=== PATIENT | male | born 1955 | race Caucasian/White ===

== ENCOUNTER 2021-06-14 08:44 | Inpatient (IN) | payer BC ==
[2021-06-14] MEDS ORDERED: MORPHINE 4 MG/ML SYR ONE ×2 (09:30→11:41)
[2021-06-14] MEDS ORDERED: ONDANSETRON 4 MG/2 ML VIAL ONE ×2 (09:31→11:41)
[2021-06-14] MEDS ORDERED: NA CHLORIDE 0.9% 1,000 ML ONE ×2 (09:31→11:41)
[2021-06-14 09:34] LABS: Absolute Lymphocytes (CBC) 1.1 K/uL (0.7-4.9); Basophils % 0.7 % (0-1.3); Hematocrit 46.4 % (39.6-49.0); Lymphocytes % 14.8 % (15.3-44.8); RBC Red Blood Cell Count 5.63 M/uL (4.33-5.43)
--- NOTE | 2021-06-14 10:38 | RAD REPORT ---
EXAM DESCRIPTION: CT - Abdomen Pelvis W Contrast - 06/14/2021 10:10 am CLINICAL HISTORY: ABD PAIN, bloating for 3 days, prior appendectomy and cholecystectomy COMPARISON: CT ABD PELVIS W CONTRAST dated 06/09/2002 TECHNIQUE: Biphasic, helical CT imaging of the abdomen and pelvis was performed following 100 ml non -ionic IV contrast. No oral contrast administered. All CT scans are performed using dose optimization technique as appropriate and may include automated exposure control or mA/KV adjustment according to patient size. FINDINGS: No suspicious findings in the lung bases. Liver shows a very pronounced diffuse fatty infiltration pattern with no focal lesion. No portal vein abnormality. Spleen and pancreas are unremarkable. Cholecystectomy clips are present with no biliary tree dilatation. Symmetric renal function is seen with no hydronephrosis or suspicious renal mass. No pyelonephritis o r acute parenchymal process. A 15 millimeter exophytic lower pole right renal cyst is new or fraction ally enlarged from the rib far remote comparison. A new or slightly enlarged 15 millimeter cyst is pr esent in the lateral mid right kidney. A 3 centimeter left parapelvic cyst is new from 2001. A 12 mil limeter lower pole left renal cyst also new. Left adrenal gland is stable. A small 17 millimeter low- density right adrenal mass appears to be new from 2001. Incidental adrenal adenoma is most likely. Stomach is fluid-filled but not grossly dilated. No gastric wall thickening or mass. No gastric outle t obstruction seen. Peristalsis affect creates thickening in the distal body of the stomach. Duodenum is unremarkable. Proximal jejunum is also unremarkable. There is progressive dilatation in the mid s mall bowel up to 4.5 cm in diameter. There is circumferential wall thickening of these bowel loops. T ransition back to normal diameter is seen in the anterior mid abdomen at the umbilical level. Distal small bowel including terminal ileum are decompressed. Colon is mostly decompressed. Trace diverticul osis noted on the left. No free air or pneumatosis. There is a trace amount of free fluid in the peritoneal cavity. No mas s or bulky lymphadenopathy seen. Fat extends into the origins of the each inguinal canal. Disc and bone degenerative changes are present. No pathologic bone process. IMPRESSION: Multiple dilated small bowel loops with circumferential wall thickening. Bowel transitio ns back to a normal diameter in the periumbilical region. Early mechanical small bowel obstruction from adhesion or internal hernia suspected. Prominent small bowel enteritis is possible as well. No free air, abscess or surgically emergent finding. Additional nonacute findings detailed in the body of the report.
--- NOTE | 2021-06-14 10:48 | EDPHYS ---
Physician Documentation [facility] Name: Jordan Aj Age: 65 yrs Sex: Male : 1955 Arrival Date: 06/14/2021 Time: 08:49 Bed 7 Private MD: Colt Saunders ED Physician Jason Gomez HPI: 06/14 09:05 This 65 yrs old Male presents to ER via Wheelchair with complaints of pm1 Abdominal Pain. 09:05 The patient presents with abdominal pain in the upper abdomen. Onset: The pm1 symptoms/episode began/occurred 2 day(s) ago. The symptoms do not radiate. Associated signs and symptoms: Pertinent positives: nausea, vomiting, and diarrhea, Pertinent negatives: chest pain, shortness of breath. The symptoms are described as crampy. Modifying factors: The symptoms are alleviated by nothing, the symptoms are aggravated by nothing. Severity of pain: in the emergency department the pain is actually worse. The patient has not experienced similar symptoms in the past. The patient has not recently seen a physician. Patient reports exposure to someone at [employer] with stomach virus on Friday. Patient reports onset of watery diarrhea on Friday. Then onset of abdominal pain nausea/vomiting on Friday. Patient reports abdominal cramping and bloating. Historical: - Allergies: 10:07 Unkown BP medication; ch5 - Home Meds: 08:57 Nexium Oral [Active]; allopurinol Oral [Active]; Edarbi oral [Active]; hydralazine Oral ch5 [Active]; - PMHx: 09:44 Hypertensive disorder; GERD; ch5 - Immunization history:: Adult Immunizations up to date, Client reports receiving the 2nd dose of the Covid vaccine. - Social history:: Smoking status: Patient denies any tobacco usage or history of. ROS: 09:05 Constitutional: Negative for fever, chills, and weight loss, Cardiovascular: Negative pm1 for chest pain, palpitations, and edema, Respiratory: Negative for shortness of breath, cough, wheezing, and pleuritic chest pain. 09:05 Back: Negative for injury and pain, : Negative for injury, bleeding, discharge, and swelling, MS/Extremity: Negative for injury and deformity, Skin: Negative for injury, rash, and discoloration. 09:05 Abdomen/GI: Positive for abdominal pain, nausea, vomiting, and diarrhea, Negative for constipation. 09:05 All other systems are negative. Exam: 09:05 Constitutional: This is a well developed, well nourished patient who is awake, alert, pm1 and in no acute distress. Head/Face: Normocephalic, atraumatic. 09:05 Skin: Warm, dry with normal turgor. Normal color with no rashes, no lesions, and no evidence of cellulitis. MS/ Extremity: Pulses equal, no cyanosis. Neurovascular intact. Full, normal range of motion. 09:05 Eyes: Exam is negative for acute changes, Periorbital structures: appear normal, Conjunctiva: no acute changes, no injection. 09:05 ENT: Exam is negative for acute changes, Mouth: no acute changes, Lips: normal, moist, Oral mucosa: normal, pink and intact, moist. 09:05 Cardiovascular: Exam negative for acute changes, Rate: normal, Rhythm: regular, Pulses: no pulse deficits are appreciated. 09:05 Respiratory: Exam negative for acute changes, respiratory distress, shortness of breath, Breath sounds: are clear throughout. 09:05 Abdomen/GI: Inspection: abdomen appears normal, Palpation: soft, in all quadrants, mild abdominal tenderness, in the epigastric area. 09:05 Neuro: Exam negative for acute changes, Orientation: is normal, Mentation: is normal, Motor: is normal, moves all fours. Vital Signs: 08:55 Weight 108.86 kg; Height 6 ft. (182.88 cm); Pain 8/10; ch5 09:00 BP 208 / 99; Pulse 66; Resp 20; Temp 98; Pulse Ox 100% on R/A; jl7 10:16 BP 163 / 78; Pulse 55; Resp 15; Pulse Ox 99% ; jl7 11:43 BP 163 / 84; Pulse 57; Resp 17; Pulse Ox 99% on R/A; jt3 14:42 BP 149 / 87; Pulse 69; Resp 17; Pulse Ox 96% on R/A; jt3 16:33 BP 165 / 82; Pulse 75; Resp 15; Pulse Ox 94% on R/A; jt3 08:55 Body Mass Index 32.55 (108.86 kg, 182.88 cm) ch5 MDM: 08:58 Patient medically screened. pm1 10:46 Data reviewed: vital signs. Data interpreted: Pulse oximetry: on room air is 99 %. pm1 Interpretation: normal. Counseling: I had a detailed discussion with the patient and/or guardian regarding: the historical points, exam findings, and any diagnostic results supporting the discharge/admit diagnosis, radiology results, the need for further work-up and treatment in the hospital. 11:27 Physician consultation: Colt Saunders MD regarding admission, patient's condition, and pm1 will see patient. 11:58 Physician consultation: Juan F Whipple MD regarding consult, patient's condition, and pm1 will see patient later today. 06/14 09:05 Order name: Basic Metabolic Panel pm1 06/14 09:05 Order name: CBC with Diff; Complete Time: 10:07 pm1 06/14 09:05 Order name: Hepatic Function pm1 06/14 09:05 Order name: Lipase pm1 06/14 09:05 Order name: Flu; Complete Time: 10:40 pm1 06/14 09:05 Order name: COVID-19 SARS RT PCR (Document "Date of Onset" if Symptomatic); Complete pm1 Time: 11:10 06/14 09:05 Order name: CT Abd/Pelvis - IV Contrast Only; Complete Time: 10:40 pm1 06/14 09:06 Order name: Basic Metabolic Panel; Complete Time: 11:10 EDMS 06/14 09:06 Order name: Liver (Hepatic) Function; Complete Time: 11:10 EDMS 06/14 09:06 Order name: Lipase; Complete Time: 11:10 EDMS 06/14 11:12 Order name: Chest Single View XRAY; Complete Time: 11:56 pm1 06/14 14:29 Order name: Chest Single View XRAY pm1 06/14 15:51 Order name: RAD; Complete Time: 15:51 EDMS 06/14 09:05 Order name: IV Saline Lock; Complete Time: 09:40 pm1 06/14 09:05 Order name: Labs collected and sent; Complete Time: 09:40 pm1 06/14 10:06 Order name: Labs - recollect needed; Complete Time: 10:16 mt 06/14 10:45 Order name: NG Tube: Low intermittent wall suction; Complete Time: 11:08 pm1 Administered Medications: 09:40 Drug: NS 0.9% 1000 ml Route: IV; Rate: 1000 ml; Site: right wrist; ap3 11:44 Follow up: IV Status: Completed infusion; IV Intake: 1000ml jt3 09:40 Drug: morphine 4 mg Route: IVP; Site: right wrist; ap3 11:44 Follow up: Response: No adverse reaction; Pain is decreased jt3 09:40 Drug: Zofran (Ondansetron) 4 mg Route: IVP; Site: right wrist; ap3 11:45 Follow up: Response: No adverse reaction; Pain is decreased jt3 11:37 Drug: morphine 4 mg Route: IVP; Site: left wrist; jt3 11:44 Follow up: Response: No adverse reaction; Pain is decreased jt3 11:37 Drug: Zofran (Ondansetron) 4 mg Route: IVP; Site: left wrist; jt3 11:44 Follow up: Response: No adverse reaction jt3 11:37 Drug: NS 0.9% 1000 ml Route: IV; Rate: 100 ml/hr; Site: left wrist; jt3 12:30 Follow up: IV Status: Completed infusion; IV Intake: 1000ml jl7 12:17 Drug: Rocephin (cefTRIAXone) 1 grams Route: IV; Rate: calculated rate; Site: left wrist;jt3 12:20 Follow up: Response: No adverse reaction; IV Status: Completed infusion jl7 12:17 Drug: Flagyl (metroNIDAZOLE) 500 mg Volume: 100 ml; Route: IVPB; Rate: 200 ml/hr; jt3 Infused Over: 30 mins; Site: left wrist; 12:47 Follow up: Response: No adverse reaction; IV Status: Completed infusion jl7 15:19 Drug: Ativan (LORazepam) 1 mg Route: IVP; Site: left wrist; jt3 18:53 Follow up: Response: No adverse reaction jl7 Disposition: 12:17 Co-signature as Attending Physician, Jason Gomez MD I agree with the assessment and rn plan of care. Attestation: The patient's history, exam findings, diagnostics, and a summary of any interventions or procedures was reviewed in detail with Jayesh Escoto NP. Disposition Summary: 06/14/21 10:47 Hospitalization Ordered Hospitalization Status: Inpatient Admission pm1 Provider: Colt Saunders pm1 Condition: Stable pm1 Problem: new pm1 Symptoms: have improved pm1 Bed/Room Type: Standard pm1 Location: Telemetry/MedSurg (Inpatient)(06/14/21 17:50) mt Room Assignment: [facility](06/14/21 17:50) wi Diagnosis - Other intestinal obstruction pm1 Forms: - Medication Reconciliation Form pm1 - SBAR form pm1 Signatures: Dispatcher [employer] EDWA Franci Saenz ds1 Jason Gomez MD MD rn Jayesh Escoto, FIELD TRAINING AGENT FIELD TRAINING AGENT pm1 Suzi Man mt, Amanda, RN RN ap3 Richard Lehman RN RN ch5 Flip Jones RN RN jt3 Enma Puga RN jl7 Corrections: (The following items were deleted from the chart) 12:24 10:47 Telemetry/MedSurg (Inpatient) pm1 ds1 12:24 10:47 pm1 ds1 17:50 12:24 BR ER HOLD ds1 mt 17:50 12:24 ERHOLD- ds1 mt
--- NOTE | 2021-06-14 10:48 | ER ---
Nurse's Notes [facility] Name: Jordan Aj Age: 65 yrs Sex: Male : 1955 Arrival Date: 06/14/2021 Time: 08:49 Bed 7 Private MD: Colt Saunders Diagnosis: Other intestinal obstruction Presentation: 06/14 08:55 Chief complaint: Patient states: N/V ABD pain x 2 days. Pt distended c/o Upper ABD ch5 pain. Coronavirus screen: Vaccine status: Patient reports receiving the 2nd dose of the covid vaccine. Client denies travel out of the [place] in the last 14 days. At this time, the client does not indicate any symptoms associated with coronavirus-19. Ebola Screen: Patient negative for fever greater than or equal to 101.5 degrees Fahrenheit, and additional compatible Ebola Virus Disease symptoms Patient denies exposure to infectious person. Patient denies travel to an Ebola-affected area in the 21 days before illness onset. No symptoms or risks identified at this time. Initial Sepsis Screen: Does the patient meet any 2 criteria? No. Patient's initial sepsis screen is negative. Does the patient have a suspected source of infection? No. Patient's initial sepsis screen is negative. Risk Assessment: Do you want to hurt yourself or someone else? Patient reports no desire to harm self or others. Onset of symptoms was June 11, 2021. 08:55 Method Of Arrival: Wheelchair ch5 08:55 Acuity: JERRI 3 ch5 Triage Assessment: 08:57 General: Appears uncomfortable, Behavior is cooperative, agitated. Pain:. GI: Reports 5 upper abdominal pain, bloating, nausea, vomiting. Historical: - Allergies: 10:07 Unkown BP medication; ch5 - Home Meds: 08:57 Nexium Oral [Active]; allopurinol Oral [Active]; Edarbi oral [Active]; hydralazine Oral ch5 [Active]; - PMHx: 09:44 Hypertensive disorder; GERD; ch5 - Immunization history:: Adult Immunizations up to date, Client reports receiving the 2nd dose of the Covid vaccine. - Social history:: Smoking status: Patient denies any tobacco usage or history of. Screenin:57 Abuse screen: Denies threats or abuse. Nutritional screening: No deficits noted. ap3 Tuberculosis screening: No symptoms or risk factors identified. Fall Risk None identified. No fall in past 12 months (0 pts). Assessment: 09:05 General: Appears. jt3 09:06 General: Appears uncomfortable. Pain: Complains of pain in abdomen Pain does not jt3 radiate. Pain currently is 8 out of 10 on a pain scale. Quality of pain is described as crampy, throbbing, Pain began 2-3 days ago. GI: Abd is soft Abdomen is tender to palpation Reports upper abdominal pain, Pt. reports abdominal pain right below the sternum that started 2 days ago and has worsened. Denies the pain radiating to his back. Past hx of hiatal hernia. Reports nausea. 14:31 Reassessment: Per MD Dr. Edwards and FELIX Escoto asked REECE Castelan to advance the NG Tube jt3 6 more inches. . Vital Signs: 08:55 Weight 108.86 kg; Height 6 ft. (182.88 cm); Pain 8/10; ch5 09:00 BP 208 / 99; Pulse 66; Resp 20; Temp 98; Pulse Ox 100% on R/A; jl7 10:16 BP 163 / 78; Pulse 55; Resp 15; Pulse Ox 99% ; jl7 11:43 BP 163 / 84; Pulse 57; Resp 17; Pulse Ox 99% on R/A; jt3 14:42 BP 149 / 87; Pulse 69; Resp 17; Pulse Ox 96% on R/A; jt3 16:33 BP 165 / 82; Pulse 75; Resp 15; Pulse Ox 94% on R/A; jt3 08:55 Body Mass Index 32.55 (108.86 kg, 182.88 cm) 5 ED Course: 08:49 Patient arrived in ED. mr 08:49 Colt Saunders MD is Private Physician. mr 08:56 Jayesh Escoto NP is PHCP. pm1 08:56 Jason Gomez MD is Attending Physician. pm1 08:57 Triage completed. 5 08:57 Patient has correct armband on for positive identification. Bed in low position. Call ap3 light in reach. Side rails up X2. computer hardware designer on. Pulse ox on. NIBP on. Door closed. Noise minimized. 08:57 Arm band placed on. 5 08:59 No provider procedures requiring assistance completed. 5 09:02 Flip Jones, REECE is Primary Nurse. jt3 09:38 Inserted saline lock: 22 gauge in left wrist, using aseptic technique. Accessed jt3 09:39 Initial lab(s) drawn, by ED staff, sent to lab. EKG done, by ED staff, reviewed by jl7 Jayesh Escoto NP COVID swab sent to lab. Flu and/or RSV swab sent to lab. 10:10 CT Abd/Pelvis - IV Contrast Only In Process Unspecified. EDMS 10:16 Lab(s) recollected, by ED staff, sent to lab. jl7 10:47 Colt Saunders MD is Hospitalizing Provider. pm1 11:10 NGT: inserted 12 Fr. via left nare. other NG Tube inserted by REECE [place]. Pt. tolerated jt3 the procedure well. Gastric contents observed. 11:27 Chest Single View XRAY In Process Unspecified. EDMS 18:52 Patient admitted, IV remains in place. intact, No redness/swelling at site. jl7 Administered Medications: 09:40 Drug: NS 0.9% 1000 ml Route: IV; Rate: 1000 ml; Site: right wrist; ap3 11:44 Follow up: IV Status: Completed infusion; IV Intake: 1000ml jt3 09:40 Drug: morphine 4 mg Route: IVP; Site: right wrist; ap3 11:44 Follow up: Response: No adverse reaction; Pain is decreased jt3 09:40 Drug: Zofran (Ondansetron) 4 mg Route: IVP; Site: right wrist; ap3 11:45 Follow up: Response: No adverse reaction; Pain is decreased jt3 11:37 Drug: morphine 4 mg Route: IVP; Site: left wrist; jt3 11:44 Follow up: Response: No adverse reaction; Pain is decreased jt3 11:37 Drug: Zofran (Ondansetron) 4 mg Route: IVP; Site: left wrist; jt3 11:44 Follow up: Response: No adverse reaction jt3 11:37 Drug: NS 0.9% 1000 ml Route: IV; Rate: 100 ml/hr; Site: left wrist; jt3 12:30 Follow up: IV Status: Completed infusion; IV Intake: 1000ml jl7 12:17 Drug: Rocephin (cefTRIAXone) 1 grams Route: IV; Rate: calculated rate; Site: left wrist;jt3 12:20 Follow up: Response: No adverse reaction; IV Status: Completed infusion jl7 12:17 Drug: Flagyl (metroNIDAZOLE) 500 mg Volume: 100 ml; Route: IVPB; Rate: 200 ml/hr; jt3 Infused Over: 30 mins; Site: left wrist; 12:47 Follow up: Response: No adverse reaction; IV Status: Completed infusion jl7 15:19 Drug: Ativan (LORazepam) 1 mg Route: IVP; Site: left wrist; jt3 18:53 Follow up: Response: No adverse reaction jl7 Intake: 11:44 IV: 1000ml; Total: 1000ml. jt3 12:30 IV: 1000ml; Total: 2000ml. jl7 Output: 11:42 Gastric: 500ml (NGT); Total: 500ml. jt3 Outcome: 10:47 Decision to Hospitalize by Provider. pm1 18:51 Admitted to Med/surg accompanied by tech, via wheelchair, room 207, with chart, Report jl7 called to REECE Brannon 18:51 Condition: stable 18:51 Discharge instructions given to patient, family, Instructed on the need for admit, Demonstrated understanding of instructions. 19:20 Patient left the ED. jl7 Signatures: Dispatcher [employer] Karlie Dexter JevonJayesh, RN WOUND CARE RN WOUND CARE pm1 Enma Puga RN RN jl7 Pari Navarro RN RN ap3 Richard Lehman RN RN ch5 Flip Jones RN RN jt3
[2021-06-14 10:56] LABS: Albumin 3.9 g/dL (3.4-5.0); Bilirubin Direct 0.2 mg/dL (0-0.2); Bilirubin Total 0.7 mg/dL (0.2-1.0); Potassium 3.5 mmol/L (3.5-5.1)
[2021-06-14] MEDS ORDERED: LIDOCAINE VISCOUS 2% SOLN 15 ML UDC ONE (11:24)
--- NOTE | 2021-06-14 11:52 | RAD REPORT ---
EXAM DESCRIPTION: RAD - Chest Single View - 06/14/2021 11:26 am CLINICAL HISTORY: NG tube placement COMPARISON: CT study same day TECHNIQUE: AP portable chest image was obtained 06/14/2021 11:26 am . FINDINGS: NG/OG tube has been placed. Tip and side port of the tubing are in the proximal stomach. S tomach appears decompressed. IMPRESSION: NG tube has been placed into the proximal stomach.
[2021-06-14] MEDS ORDERED: CEFTRIAXONE 1000 MG/VIAL ONE (12:23)
[2021-06-14] MEDS ORDERED: WATER FOR INJ,STERILE 10 ML ONE (12:24)
[2021-06-14] MEDS ORDERED: NA CHLORIDE 0.9% 250 ML ONE (12:28)
[2021-06-14] MEDS ORDERED: METRONIDAZOLE 500mg IVPB 500 MG/100 ML BAG IV ONE (12:28)
[2021-06-14] MEDS ORDERED: LORazepam 2 MG/ML VIAL ONE (15:35)
--- NOTE | 2021-06-14 15:50 | RAD REPORT ---
EXAM DESCRIPTION: RAD - Chest Single View - 06/14/2021 3:35 pm CLINICAL HISTORY: NG Tube placement COMPARISON: Chest Single View dated 06/14/2021; Chest Pa And Lat (2 Views) dated 05/19/2018; CHEST PA AND LAT 2 VIEW dated 08/07/2011; CHEST PA AND LAT 2 VIEW dated 08/03/2009 FINDINGS: NG tube is in place with tip overlying the stomach. Surgical clips in right upper quadrant . IMPRESSION: NG tube tip overlying the stomach.
[2021-06-14] MEDS ORDERED: MORPHINE 4 MG/ML SYR IV PRN (16:50)
[2021-06-14] MEDS ORDERED: ONDANSETRON 4 MG/2 ML VIAL IV PRN (16:50)
[2021-06-14] MEDS: LORazepam 2 MG/ML VIAL IV PRN (20:34)
[2021-06-14] MEDS ORDERED: MINERAL OIL 30 ML UCUP PO ONE (22:00)
[2021-06-14] MEDS ORDERED: MINERAL OIL 30 ML UCUP FT ONE (22:00)
[2021-06-15] MEDS: D5 0.45 NS 1,000 ML IV SCH ×5 (01:24→23:23)
[2021-06-15] MEDS: MORPHINE 2 MG/ML SYR IV PRN ×2 (04:10→09:23)
[2021-06-15 05:29] LABS: Absolute Lymphocytes (CBC) 0.9 K/uL (0.7-4.9); Basophils % 0.5 % (0-1.3); Hematocrit 41.3 % (39.6-49.0); Lymphocytes % 14.2 % (15.3-44.8); MPV 7.5 fL (7.6-11.3); RBC Red Blood Cell Count 4.98 M/uL (4.33-5.43)
[2021-06-15 05:54] LABS: Bilirubin Direct 0.2 mg/dL (0-0.2); Bilirubin Total 0.6 mg/dL (0.2-1.0); Potassium 3.3 mmol/L (3.5-5.1); Protein, Total 6.4 g/dL (6.4-8.2)
[2021-06-15] MEDS ORDERED: MINERAL OIL 30 ML UCUP FT ONE (06:00)
--- NOTE | 2021-06-15 07:46 | EKG ---
Test Date: 2021-06-14 Test Time: 09:17:25 Driver Engineer: RENETTA MEASUREMENT RESULTS: Intervals: Rate: 64 [place]: 150 QRSD: 88 QT: 430 QTc: 443 [place]: P: 33 [place]: 150 QRS: 58 T: 57 INTERPRETIVE STATEMENTS: Normal sinus rhythm Possible Anterior infarct, age undetermined Abnormal ECG Compared to ECG 08/25/2015 13:39:16 No significant changes Electronically Signed On 06-15-21 07:44:20 CDT by Kvng Blackman
--- NOTE | 2021-06-15 07:55 | RAD REPORT ---
EXAM DESCRIPTION: RAD - Abdomen 1 View (KUB) - 06/15/2021 6:05 am CLINICAL HISTORY: Small bowel obstruction COMPARISON: Chest Single View dated 06/14/2021; Abdomen Pelvis W Contrast dated 06/14/2021 FINDINGS: Persistently dilated small bowel within the left hemiabdomen. Enteric tube overlying the s tomach. No acute osseous abnormality.Visualized lungs are unremarkable.No abnormal calcifications. Ch olecystectomy clips. IMPRESSION: Similar dilatation of small bowel in the left hemiabdomen. Radiographically, this has th e appearance of a small bowel obstruction.
[2021-06-15] MEDS: DULERA 200/5 (MOMETASONE/FORMOTEROL) INHALER IH SCH ×3 (09:00→20:38)
[2021-06-15] MEDS: LORazepam 2 MG/ML VIAL IV PRN ×3 (09:26→23:23)
[2021-06-15] MEDS: KCL 20 MEQ/100 mL IVPB 20 MEQ/100 ML BAG IV SCH ×2 (09:38→11:00)
--- NOTE | 2021-06-15 10:08 | P.HP ---
Date of Service: 06/14/21 PC: This 65-year-old male presented to the emergency room with severe abdominal pain for diagnosis and treatment. HPC: Patient has been well until Friday. At that time began experiencing some abdominal discomfort. Pain is intensified over the last few days. Describes it as a hard cramping type discomfort located in the left upper quadrant. PSHx: Open appendectomy for ruptured appendix 30 years ago. Gallbladder surgery. PMHx: Hypertension Social Hx: No known allergies Sys R: States has been in relatively good health. No urinary complaints. No change in bowel habit prior to this episode. O/E: Awake alert vital signs are stable mildly uncomfortable HEENT: Nonicteric Chest: Air entry equal bilaterally Abd: Large abdomen, mildly tympanic, mild tenderness in the left upper quadrant [place]: Intact Data: CT scan shows possible small bowel obstruction Impression: Partial small bowel obstruction Plan: Patient has been admitted at this time. We will place a nasogastric tube and IV fluids. He has been given pain medicine. Hopefully this will resolve without surgical intervention.
[2021-06-15] MEDS ORDERED: Ringers Lactate 1,000 ML IV ONE ×2 (12:11→16:05)
[2021-06-15] MEDS ORDERED: dexAMETHasone 10 MG/ML VIAL ONE (12:27)
[2021-06-15] MEDS ORDERED: FENTANYL CITR 100 MCG/2 ML ONE ×2 (12:27→15:00)
[2021-06-15] MEDS ORDERED: ONDANSETRON 4 MG/2 ML VIAL ONE (12:27)
[2021-06-15] MEDS ORDERED: KETOROLAC 30 MG/ML INJ ONE (12:27)
[2021-06-15] MEDS ORDERED: LIDOCAINE 1% MPF 2 ML AMPULE ONE (12:27)
[2021-06-15] MEDS ORDERED: NS 0.9% VIAL 10 ML ONE ×2 (12:27→13:29)
[2021-06-15] MEDS ORDERED: propofoL 200 MG/20 ML VIAL IV ONE (12:27)
[2021-06-15] MEDS ORDERED: MIDAZOLAM HCL 2 MG/2 ML INJ ONE (12:27)
[2021-06-15] MEDS ORDERED: VECURONIUM 10 MG/VIAL IV ONE (12:28)
[2021-06-15] MEDS ORDERED: ROCURONIUM 50 MG/5 ML VIAL IV ONE (12:28)
[2021-06-15] MEDS ORDERED: EPHEDRINE SULF 50 MG/ML VIAL ONE (13:29)
[2021-06-15] MEDS ORDERED: ALBUTEROL INHALER 60 PUFF/8 GM IH ONE (13:39)
[2021-06-15] MEDS ORDERED: CEFOXITIN/NS 1gm 1 GM/50 ML BAG ONE (13:51)
[2021-06-15] MEDS ORDERED: GLYCOPYRROLATE 0.2 MG/ML SYR ONE (16:08)
[2021-06-15] MEDS ORDERED: NEOSTIGMINE 1 MG/ML -5 ML ONE (16:16)
--- NOTE | 2021-06-15 16:24 | P.OP ---
Preoperative diagnosis: Small bowel obstruction Postoperative diagnosis: The same Primary procedure: Laparoscopy Secondary procedure: Exploratory laparotomy Other procedure(s): Small bowel resection Anesthesia: General Estimated blood loss: Less than 10 cc Specimen: Section of small bowel Operative Technique: The patient brought the operating room placed supine on the table. After the induction of endotracheal anesthesia, the area of the abdomen was prepped with a DuraPrep solution, and he was draped in usual aseptic manner. A Dukes catheter had been inserted under sterile technique. Attention was turned towards the left side of the abdomen. Skin incision was made. This was brought down through the skin and subcutaneous tissue. Visiport was used to enter the peritoneal cavity and created pneumoperitoneum to approximately 12 mmHg0. We were able to insert the camera and view around the abdominal cavity. We could see there were large dilated loops of bowel just immediately on the left side of the abdomen. On inspecting the anterior abdominal wall we could see there were some adhesions of the omentum to the anterior abdominal wall in the upper portion of the abdomen along the direction of the inferior edge of the liver. This continued down into the right lower quadrant along the direction of the patient's old paramedian scar. We were not able to adequately visualize all of the small bowel to to his continuous distention. He could see that there was some normal caliber bowel in the right lower quadrant however. Because of the inability to adequately visualize the intestines, a generous midline incision was made. The fascia was opened along the midline. Retractors were now placed and we are able to trace the small bowel from the ligament of Treitz down to the ileocecal valve. On the distal portion of the distal ileum we could see that there were dilated loops of bowel that had been under pressure. There was some serosal splitting in one area there was some actual leakage of intestinal contents. This was quickly contained. Through this opening we are able to place a nasogastric tube and passing it both anteriorly and posteriorly were able to decompress a large portion of the small intestine. The small intestine however was still distended and edematous in these portions. The pelvis was identified. There was no evidence of any adhesions down into the true pelvis, the sigmoid colon right colon was identified. The transverse was not dilated nor was the right colon itself. The ileocecal valve appeared to be normal with a normal caliber of intestinal just proximal to this. Patient was turned back towards this area of serosal splitting. A small bowel resection was done by using a linear stapler. A [id number] functional end-to-end and anastomosis was done in the usual manner. The mesenteric defect was approximated with a running stitch of chromic. A stay stitch was placed to take pressure off of our anastomosis. At this point the intestines were once again inspected from the ligament of Treitz and returned to the normal anatomical position in the abdominal cavity. The omentum was laid down over the top of the intestines. The midline incision was closed with a running suture of nylon. [place]qu[place] were then applied to the skin. The trocar holes were also approximated using skin gabriele. At the end of the procedure he was stable when sent to the recovery room. Needle sponge instrument count were correct. No drains were placed. Complications: None Drain(s): Nasogastric, Urinary catheter Transferred to: Recovery Room Condition: Good
[2021-06-15] MEDS: CEFOXITIN 1 GM in NA CHLORIDE 0.9% 100 ML IVPB SCH ×2 (18:25→18:26)
--- NOTE | 2021-06-15 19:56 | PN ---
Date of Progress Note: 06/15/2021 The patient has regressed to intake his original status when he was admitted, abdominal pain, distent ion despite NG tube draining a large amount of fluid. KUB confirms no significant change clinically. It was felt that he should have a surgical procedure and this was done by Dr. Degroot in the early a fternoon. HR/MODL Voice ID: [id number] Report ID: [id number]
--- NOTE | 2021-06-15 19:56 | PN ---
Date of Progress Note: 06/14/2021 Subjective: The patient was seen tonight and had improved considerably from earlier in the day. His abdomen was soft and it was distended. Marked amount of fluid was removed to the NG tube. Vital si gns were stable. Continue with present regimen. Repeat the KUB in the morning and depending on the results, we will either consider continued conservative treatment and/or a surgical procedure. Discu ssed with the surgeon. HR/MODL Voice ID: [id number] Report ID: [id number]
--- NOTE | 2021-06-15 20:17 | HP ---
Date of Admission: 06/14/2021 Entrance Complaint: Abdominal pain, distention. History Of Present Illness: The patient presented to the emergency room with the above outlined symp toms. He stated he started some diarrhea and lower abdominal pain 3-4 days ago and he felt this was possibly a stomach virus. However, he became anorectic, nauseated, and felt that he was losing groun d. He therefore presented to the emergency room. Past History: The patient had significant pulmonary conditions over the past few years, however the past year has since he has lost a significant amount of weight, this has decrease markedly so that he no longer needs his inhalers. He had an abdominal surgery over 20 years ago in the form of appendec jose and cholecystectomy. Social History: Nonsmoker, nondrinker. Family History: Noncontributory. Physical Examination: General: Patient is a well-built, middle-aged male in some distress with stable vital signs. Head and Neck: Normocephalic. Pupils equal, react to light and accommodation. Fundi negative. Trache a midline. Thyroid not palpable. ENT: Negative. Chest: Clear to P and A. Cardiovascular: PMI midclavicular line. Heart: Heart sounds normal. Peripheral pulses present and equal bilaterally. Abdomen: Markedly distended. Tenderness throughout, more marked in the lower abdominal area central ly and paraumbilical area. No guarding, rigidity, however, tender throughout to the area. Extremities: Good tone and movement bilaterally. Reflexes physiologic. Moderately dehydrated. Rectal: Deferred. Impression: Abdominal pain secondary to bowel obstruction, dehydration, pulmonary disease by history . Plan: Patient will be admitted, placed on IV fluids. NG tube will be inserted. Consultation will b e obtained with the surgeon. A CT scan showed significant small bowel obstruction. HR/MODL Voice ID: [id number]
[2021-06-16] MEDS: MORPHINE 4 MG/ML SYR IV PRN ×5 (01:24→22:05)
[2021-06-16] MEDS: CEFOXITIN 1 GM in NA CHLORIDE 0.9% 100 ML IVPB SCH ×3 (05:03→18:29)
[2021-06-16] MEDS: LORazepam 2 MG/ML VIAL IV PRN ×2 (05:52→19:58)
[2021-06-16 07:15] LABS: Absolute Lymphocytes (CBC) 0.6 K/uL (0.7-4.9); Basophils % 0.1 % (0-1.3); Hematocrit 39.6 % (39.6-49.0); Lymphocytes % 4.6 % (15.3-44.8); MPV 7.4 fL (7.6-11.3); RBC Red Blood Cell Count 4.82 M/uL (4.33-5.43)
[2021-06-16 07:34] LABS: Albumin 2.9 g/dL (3.4-5.0); Bilirubin Total 0.6 mg/dL (0.2-1.0); Potassium 3.5 mmol/L (3.5-5.1); Protein, Total 6.3 g/dL (6.4-8.2)
[2021-06-16 09:18] LABS: Blood Morphology Comment NOT SEEN (NOT SEEN); Platelet Estimate ADEQ
[2021-06-16] MEDS: DULERA 200/5 (MOMETASONE/FORMOTEROL) INHALER IH SCH ×2 (09:39→21:00)
[2021-06-16] MEDS: D5 0.45 NS 1,000 ML IV SCH ×3 (09:43→21:39)
--- NOTE | 2021-06-16 12:06 | P.PN ---
Date of Service: 06/16/21 S: Patient feels better today, has already been up ambulating, voiding on his own after deseeding Dukes. Nasogastric tube was pulled out by patient last night. His abdomen is soft and I will not replace it. States that his abdomen feels much better, can already feel his intestines making some noises. O: Vital signs are stable, incision is intact labs acceptable A: Stable status post exploratory laparoscopy/laparotomy for small bowel obstruction with small bowel resection. P: Continue with incentive spirometry. May have ice chips and popsicles today. We will give 1 dose of mineral oil this p.m. Patient has been encouraged to ambulate. We will allow him to shower tomorrow.
[2021-06-16] MEDS ORDERED: MINERAL OIL 30 ML UCUP PO ONE (17:00)
--- NOTE | 2021-06-16 18:03 | PN ---
Date of Progress Note: 06/16/2021 The patient is now 1 day postop, doing quite well actually. Abdomen is little uncomfortable, slightly distended with little bit of tenderness. Vital signs have stabilized. His breathing is good. We will continue on same regimen. HR/MODL Voice ID: [id number] Report ID: [id number]
[2021-06-16] MEDS ORDERED: FUROSEMIDE 40 MG/4 ML VIAL IV ONE (21:08)
[2021-06-16] MEDS ORDERED: SODIUM CHLORIDE 0.9% 10ML INJ IV PRN (21:09)
[2021-06-16] MEDS ORDERED: PANTOPRAZOLE 40 MG INJ IVP ONE (21:16)
[2021-06-17] MEDS: CEFOXITIN 1 GM in NA CHLORIDE 0.9% 100 ML IVPB SCH ×5 (00:24→23:05)
[2021-06-17] MEDS: MORPHINE 4 MG/ML SYR IV PRN ×4 (04:18→19:59)
[2021-06-17] MEDS: LORazepam 2 MG/ML VIAL IV PRN ×3 (06:18→19:59)
[2021-06-17 07:45] LABS: Absolute Lymphocytes (CBC) 0.8 K/uL (0.7-4.9); Basophils % 0.3 % (0-1.3); Hematocrit 39.8 % (39.6-49.0); Lymphocytes % 7.3 % (15.3-44.8); MPV 7.5 fL (7.6-11.3); RBC Red Blood Cell Count 4.83 M/uL (4.33-5.43)
--- NOTE | 2021-06-17 07:46 | RAD REPORT ---
EXAM DESCRIPTION: RAD - Chest Single View - 06/17/2021 7:00 am CLINICAL HISTORY: dyspnea COMPARISON: Two view chest May 2018 TECHNIQUE: AP portable chest image was obtained 06/17/2021 7:00 am . FINDINGS: Lung volumes are low. No peripheral mass or consolidation. No pulmonary edema or volume ov erload findings. Trachea is midline. Heart and vasculature are normal. No measurable pleural effusion and no pneumothorax. No acute bony abnormality seen. No acute aortic findings suspected. IMPRESSION: No acute cardiopulmonary process.
[2021-06-17 08:02] LABS: Albumin 3.1 g/dL (3.4-5.0); Potassium 3.3 mmol/L (3.5-5.1)
[2021-06-17] MEDS: DULERA 200/5 (MOMETASONE/FORMOTEROL) INHALER IH SCH ×2 (08:11→21:00)
[2021-06-17 10:47] LABS: Arterial Blood Carboxyhemoglob 1.6 % (0-1.5); Blood Gas Oxyhemoglobin 92.2 % (94-97); Blood O2 Saturation 95.1 % (92-98.5)
--- NOTE | 2021-06-17 11:12 | RAD REPORT ---
EXAM DESCRIPTION: RAD - Abdomen 1 View (KUB) - 06/17/2021 10:27 am CLINICAL HISTORY: abd pain COMPARISON: Abdomen 1 View (KUB) dated 06/15/2021 FINDINGS: Small bowel dilation pattern has improved. No new or progressive obstructive process ident ifiable. No free air or pneumatosis. Cholecystectomy clips present. NG tube has been removed. Stomach does not appear to be distended. Surgical staple clips seen lateral abdomen. No significant bony findings IMPRESSION: Significant decrease in the dilated small bowel pattern since June 15.
[2021-06-17] MEDS: ALBUTEROL 2.5 MG/3 ML NEB SOL NEB PRN ×2 (11:25→15:08)
[2021-06-17] MEDS: IPRATROPIUM BROM 0.5MG/2.5ML NEB PRN ×2 (11:25→15:08)
[2021-06-17] MEDS ORDERED: MINERAL OIL 30 ML UCUP PO ONE (12:00)
[2021-06-17] MEDS ORDERED: ALBUTEROL 2.5 MG/3 ML NEB SOL NEB SCH (12:00)
[2021-06-17] MEDS ORDERED: BISACODYL 10 MG RECTAL SUPP PR ONE (12:00)
[2021-06-17] MEDS ORDERED: IPRATROPIUM BROM 0.5MG/2.5ML NEB SCH (12:00)
[2021-06-17] MEDS: KCL 20 MEQ/100 mL IVPB 20 MEQ/100 ML BAG IV SCH ×2 (12:53→13:30)
[2021-06-17] MEDS: D5 0.45 NS 1,000 ML IV SCH ×3 (12:57→23:04)
[2021-06-17] MEDS ORDERED: FUROSEMIDE 40 MG/4 ML VIAL IV ONE (13:00)
--- NOTE | 2021-06-17 14:04 | PN ---
Date of Progress Note: 06/17/2021 Subjective: This is a patient of Dr. Whipple who has asked me to cover while he is out of town. The patient underwent a small bowel resection for small-bowel obstruction on Friday and postoperatively he has been stable, doing well. No new issues except for some breathing issues that he chronically h as and his medication has not been started. He has a little bit of nausea, no bowel movement, not pa ssing gas. He has pain when he gets up and moves around the incision, otherwise his pain is fairly w ell controlled. Objective: Vital Signs: Stable, afebrile. Laboratory Data: [place] [address] with a slight left shift and his chemistry is s ignificant for potassium is 3.3, which is being replaced. Glucose is slightly elevated. His I's and O's show adequate urine output. His abdomen is soft. Hypoactive bowel sounds. Slightly distended. Minimal tenderness around the incision. No evidence of peritonitis and the wound is clean, dry, an d intact. Assessment: Status post small bowel resection for small-bowel obstruction. Recommendations: Continue the patient on ice chips and at this time, encourage ambulation, breathing treatments as ordered. The patient is clinically stable. /MODL Voice ID: [id number] Report ID: [id number]
--- NOTE | 2021-06-17 19:34 | PN ---
Date of Progress Note: 06/17/2021 The patient was quite uncomfortable this morning and stated he has had abdominal pain. He also had s ome trouble breathing. Therefore, a chest x-ray was done, which really read as normal except for dec reased air entry; and therefore, he was also started on some oxygen. His O2 saturation was a little bit low mainly for comfort sake. He is not wheezing. His flatplate of the abdomen showed marked imp rovement and physically is not as tender as distended and still uncomfortable. He is enco uraged to ambulate, which he has been doing. The blood pressure has been somewhat of an issue as tyree l, although responds to Ativan and MS. He was given Lasix and this too will be continued today. As he does take Lasix at home as well as Edarbi and hydralazine the necessity to give IV if i n fact we still can control his blood pressure. I think he could try some clonidine as necessary. P rotonix was also added to the regimen. He takes Nexium at home. We continued to be monitored closel y as far as his pulmonary status and his blood pressure is concerned. HR/MODL Voice ID: [id number] Report ID: [id number]
[2021-06-17] MEDS: PANTOPRAZOLE 40 MG INJ IVP SCH (19:59)
[2021-06-18] MEDS: CEFOXITIN 1 GM in NA CHLORIDE 0.9% 100 ML IVPB SCH ×4 (05:00→23:00)
[2021-06-18 06:40] LABS: Absolute Lymphocytes (CBC) 0.9 K/uL (0.7-4.9); Basophils % 0.6 % (0-1.3); Hematocrit 38.1 % (39.6-49.0); Lymphocytes % 12.3 % (15.3-44.8); MPV 7.7 fL (7.6-11.3); RBC Red Blood Cell Count 4.64 M/uL (4.33-5.43)
[2021-06-18 06:55] LABS: Potassium 2.9 mmol/L (3.5-5.1)
[2021-06-18] MEDS: D5 0.45 NS 1,000 ML IV SCH ×2 (08:50→16:50)
[2021-06-18] MEDS: DULERA 200/5 (MOMETASONE/FORMOTEROL) INHALER IH SCH ×2 (08:54→20:06)
[2021-06-18] MEDS: KCL 20 MEQ/100 mL IVPB 20 MEQ/100 ML BAG IV SCH ×3 (08:54→17:38)
[2021-06-18] MEDS: MORPHINE 4 MG/ML SYR IV PRN ×2 (10:30→17:25)
[2021-06-18] MEDS: PANTOPRAZOLE 40 MG INJ IVP SCH (10:31)
[2021-06-18] MEDS: IPRATROPIUM BROM 0.5MG/2.5ML NEB PRN (11:43)
[2021-06-18] MEDS: ALBUTEROL 2.5 MG/3 ML NEB SOL NEB PRN (11:43)
--- NOTE | 2021-06-18 12:49 | PN ---
Date of Progress Note: 06/18/2021 Subjective: The patient is awake, alert. No bowel movements. No flatus. Still feels bloated. Has crampy abdominal pain off and on. Ambulating. Objective: Vital Signs: Stable, afebrile. Abdomen: Soft, distended. Hypoactive bowel sounds. Laboratory Data: Reviewed. White count is normal. Assessment: Status post exploratory laparotomy with small bowel resection. Recommendations: I will keep him essentially n.p.o. at this time with some ice chips and we will get a PICC line since he has poor IVs and start him on TPN as he has not had any nutrition for the last 9 days and he is falling behind and has not opened up yet. Encourage ambulation. Once the patient s tarts having bowel function, we will begin his diet and advance as tolerated. /MODL Voice ID: [id number] Report ID: [id number]
[2021-06-18] MEDS ORDERED: FUROSEMIDE 40 MG/4 ML VIAL IV ONE (15:00)
--- NOTE | 2021-06-18 16:41 | RAD REPORT ---
EXAM DESCRIPTION: RAD - Chest Single View - 06/18/2021 4:12 pm CLINICAL HISTORY: Picc line placement COMPARISON: <Comparisons> FINDINGS: Lines: Left subclavian approach PICC with tip overlying the superior cavoatrial junction. . Lungs: No evidence of edema or pneumonia. Pleural: No significant pleural effusions or pneumothorax. Cardiac: The heart size is within normal limits. Bones: No acute fractures. Other: IMPRESSION: No acute cardiopulmonary disease. Left subclavian approach PICC with tip overlying the s uperior cavoatrial junction in satisfactory position.
[2021-06-18] MEDS ORDERED: AA 5%/D20W/ELECTROLYTES-TPN 2,000 ML, Lipids 20% 250 ML with MULTIVITAMINS INJ 10 ML IV SCH ×3 (17:00)
[2021-06-18] MEDS: HYDRALAZINE HCL 25 MG TABLET PO SCH (17:41)
[2021-06-18] MEDS: LORazepam 2 MG/ML VIAL IV PRN (20:03)
[2021-06-19] MEDS: MORPHINE 4 MG/ML SYR IV PRN ×4 (00:19→18:53)
[2021-06-19] MEDS: D5 0.45 NS 1,000 ML IV SCH ×2 (00:50→08:54)
[2021-06-19] MEDS: CEFOXITIN 1 GM in NA CHLORIDE 0.9% 100 ML IVPB SCH ×4 (04:52→22:58)
[2021-06-19 06:14] LABS: Absolute Lymphocytes (CBC) 1.3 K/uL (0.7-4.9); Basophils % 1.1 % (0-1.3); Hematocrit 41.4 % (39.6-49.0); Lymphocytes % 19.3 % (15.3-44.8); MPV 7.8 fL (7.6-11.3)
[2021-06-19 06:31] LABS: Magnesium 2.5 mg/dL (1.8-2.4); Potassium 3.3 mmol/L (3.5-5.1)
--- NOTE | 2021-06-19 07:38 | RAD REPORT ---
EXAM DESCRIPTION: RAD - Abdomen 1 View (KUB) - 06/19/2021 6:23 am CLINICAL HISTORY: s/p bowel resection COMPARISON: Abdomen 1 View (KUB) dated 06/17/2021; Abdomen 1 View (KUB) dated 06/15/2021; Abdomen Pelvis W Contrast dated 06/14/2021 FINDINGS: Interval laparotomy. Small bowel dilatation the left hemiabdomen is again noted. The small bowel measures up to 4.1 cm. Surgical clips in the right upper quadrant. No fractures identified IMPRESSION: Small bowel dilatation in the left hemiabdomen following laparotomy. This could reflect an ileus.
[2021-06-19] MEDS: ALBUTEROL 2.5 MG/3 ML NEB SOL NEB PRN (08:06)
[2021-06-19] MEDS: IPRATROPIUM BROM 0.5MG/2.5ML NEB PRN (08:06)
[2021-06-19] MEDS: PANTOPRAZOLE 40 MG INJ IVP SCH (08:54)
[2021-06-19] MEDS: HYDRALAZINE HCL 25 MG TABLET PO SCH (08:54)
[2021-06-19] MEDS: DULERA 200/5 (MOMETASONE/FORMOTEROL) INHALER IH SCH ×2 (08:54→20:23)
[2021-06-19] MEDS: FUROSEMIDE 40 MG TABLET PO SCH (08:54)
[2021-06-19] MEDS: EDARBI 80 MG PO SCH (09:00)
[2021-06-19] MEDS ORDERED: POTASSIUM CL SA 10 MEQ TAB PO ONE (10:56)
[2021-06-19] MEDS ORDERED: MINERAL OIL 30 ML UCUP PO ONE (13:02)
--- NOTE | 2021-06-19 13:13 | P.PN ---
Date of Service: 06/19/21 S: Patient is somewhat more comfortable today. Had scanty bowel movement today. Abdomen is a lot softer, pain is under control. O: Abdomen is still distended mildly tympanic. Has occasional bowel sounds. Tolerating TPN A: POA appears to be resolving, incisions are clean, pain is almost controlled. P: Ambulate patient, continue incentive spirometry, I will start him on a regular diet [he does not have much of an appetite, but just wants to try and pick], will get patient up to shower, continue current therapy.
--- NOTE | 2021-06-19 14:42 | PN ---
Date of Progress Note: 06/19/2021 The patient does seem more comfortable today, although his white count is inching up and may be secon shani to mild cellulitis of the right forearm which has developed since an infiltrated IV. He has had other infiltrated sites, however, not inflamed; however, this one is. He has been on Mefoxin. We w ill add clindamycin to the regimen. His abdomen is concerned, he is still slightly distended. Minim al tenderness. No rebound tenderness. KUB did show some left lower quadrant probable ileus. The koko lakhani states he has been walking some. He was encouraged to increase this. He is now on TPN. Blood pressure is stable. He has not passed any gas or belch. We will continue regimen as far as walking and TPN until further progression of the intestinal tract. HR/MODL Voice ID: [id number] Report ID: [id number]
--- NOTE | 2021-06-19 15:11 | PN ---
Date of Progress Note: 06/19/2021 Subjective: The patient is awake, alert, no nausea or vomiting that has not passed gas, still feels distended, has not had a bowel movement. Vital stable, afebrile. Laboratory Data: Reviewed. His potassium is 3.3, being replaced. Objective: His abdomen is distended. Hypoactive bowel sounds. Wound is clean, dry and intact. Assessment: Status post small bowel resection for small-bowel obstructions. Recommendation: Continue TPN n.p.o. except for ice chips and popsicles, ambulation, incentive spirom etry. The patient probably has prolonged ileus, clinically stable though. /MODL Voice ID: [id number] Report ID: [id number]
[2021-06-19] MEDS ORDERED: AA 5%/D20W/ELECTROLYTES-TPN 2,000 ML with MULTIVITAMINS INJ 10 ML IV SCH ×2 (17:00)
[2021-06-19] MEDS: CLINDAMYCIN INJ 900 MG in NA CHLORIDE 0.9% 50 ML IV SCH ×2 (17:30→23:55)
[2021-06-19] MEDS: DIAZEPAM 5 MG TABLET PO PRN (19:48)
[2021-06-19] MEDS: HYDROCODONE/APAP 7.5/325 MG TAB PO PRN ×2 (20:20→23:55)
[2021-06-19] MEDS ORDERED: CLINDAMYCIN IV 150 MG/ML (6 mL) VIAL ONE (23:53)
[2021-06-19] MEDS ORDERED: NA CHLORIDE 0.9% 100 ML ONE (23:54)
[2021-06-20] MEDS: MORPHINE 4 MG/ML SYR IV PRN ×5 (03:23→22:39)
[2021-06-20] MEDS ORDERED: CEFOXITIN SODIUM 1 GM/VIAL ONE (05:01)
[2021-06-20 05:16] LABS: Absolute Lymphocytes (CBC) 1.2 K/uL (0.7-4.9); Basophils % 0.8 % (0-1.3); MPV 7.6 fL (7.6-11.3)
[2021-06-20] MEDS ORDERED: NA CHLORIDE 0.9% 100 ML ONE (05:18)
[2021-06-20] MEDS: CEFOXITIN 1 GM in NA CHLORIDE 0.9% 100 ML IVPB SCH ×3 (05:20→19:43)
[2021-06-20] MEDS: HYDROCODONE/APAP 7.5/325 MG TAB PO PRN ×2 (05:21→20:07)
[2021-06-20 05:30] LABS: Potassium 3.6 mmol/L (3.5-5.1)
[2021-06-20] MEDS: ALBUTEROL 2.5 MG/3 ML NEB SOL NEB PRN (08:05)
[2021-06-20] MEDS ORDERED: POTASSIUM 25 MEQ EFFERV TAB PO ONE (09:00)
[2021-06-20] MEDS: EDARBI 80 MG PO SCH (09:00)
[2021-06-20] MEDS: FUROSEMIDE 40 MG TABLET PO SCH (09:18)
[2021-06-20] MEDS: HYDRALAZINE HCL 25 MG TABLET PO SCH (09:18)
[2021-06-20] MEDS: CLINDAMYCIN INJ 900 MG in NA CHLORIDE 0.9% 50 ML IV SCH ×2 (09:19→17:00)
[2021-06-20] MEDS: DULERA 200/5 (MOMETASONE/FORMOTEROL) INHALER IH SCH ×2 (09:20→21:00)
[2021-06-20] MEDS: PANTOPRAZOLE 40 MG INJ IVP SCH (09:21)
[2021-06-20] MEDS: ONDANSETRON 4 MG/2 ML VIAL IV PRN ×2 (10:33→22:43)
[2021-06-20] MEDS ORDERED: MINERAL OIL 30 ML UCUP PO ONE ×2 (13:51→21:00)
--- NOTE | 2021-06-20 14:01 | P.PN ---
Date of Service: 06/20/21 S: Patient doing better today, had regular diet last night, did have some cramping abdominal pain throughout the night and still little bit today. Also has occasional nausea. Getting occasional abdominal cramps, but still no bowel movements. O: Continues to improve abdomen is soft A: Postoperative ileus appears to be resolving P: Taper TPN, mineral oil again today. Ambulate, encourage incentive spirometry anticipate discharge soon.
[2021-06-20] MEDS ORDERED: PROMETHAZINE INJ 25 MG/ML AMP IV PRN (14:54)
--- NOTE | 2021-06-20 16:30 | PN ---
Date of Progress Note: 06/20/2021 The patient experienced episode of vomiting on 2 to 3 occasions in the last 15 to 20 minutes before I had seen him. His abdomen is still somewhat firm. Bowel sounds are hypoactive. Minimal amount of tenderness. The patient states he feels better obviously since the vomiting. He is belching now. Nic laura has only passed gas x1. Has been walking a lot today. I think it probably will be prudent to back off on his diet somewhat tonight, so I ordered full liquids. His lab work has improved i ncluding his white count. We will gradually decrease his and observe overnight possibly m aking the dietary change tomorrow. HR/MODL Voice ID: [id number] Report ID: [id number]
--- NOTE | 2021-06-20 17:05 | RAD REPORT ---
EXAM DESCRIPTION: RAD - Abdomen 1 View (KUB) - 06/20/2021 4:41 pm CLINICAL HISTORY: Abd Pain/Onset of nausea COMPARISON: Abdomen 1 View (KUB) dated 06/19/2021; Abdomen 1 View (KUB) dated 06/17/2021; Abdomen 1 V iew (KUB) dated 06/15/2021; Abdomen Pelvis W Contrast dated 06/14/2021 FINDINGS: Persistently dilated small bowel in the left hemiabdomen. There is some gas within the col on. The degree of dilatation has increased, however. One small bowel lobe for example measures nearly 6 cm. Surgical clips are present in the right upper quadrant. The stomach is distended with particul ate matter. IMPRESSION: Increased small bowel dilatation in the left hemiabdomen which could represent ileus estephania roula small bowel obstruction. Distended stomach. Consider NG tube decompression. Repeat CT could be co nsidered to better evaluate.
[2021-06-20] MEDS ORDERED: CLINDAMYCIN IV 150 MG/ML (6 mL) VIAL ONE ×2 (17:24→17:25)
[2021-06-20] MEDS ORDERED: NA CHLORIDE 0.9% 50 ML ONE (17:27)
[2021-06-20] MEDS: cloNIDine HCL 0.1 MG TAB PO PRN (20:07)
[2021-06-20] MEDS ORDERED: LIDOCAINE VISCOUS 2% SOLN 15 ML UDC PO ONE (21:08)
[2021-06-20] MEDS ORDERED: BISACODYL 10 MG RECTAL SUPP PR ONE (22:57)
[2021-06-21] MEDS: CLINDAMYCIN INJ 900 MG in NA CHLORIDE 0.9% 50 ML IV SCH ×3 (00:51→17:00)
[2021-06-21] MEDS: CEFOXITIN 1 GM in NA CHLORIDE 0.9% 100 ML IVPB SCH ×5 (05:30→17:49)
[2021-06-21 06:02] LABS: Absolute Lymphocytes (CBC) 0.6 K/uL (0.7-4.9); Basophils % 0.5 % (0-1.3); Hematocrit 40.3 % (39.6-49.0); Lymphocytes % 6.5 % (15.3-44.8); RBC Red Blood Cell Count 4.89 M/uL (4.33-5.43)
[2021-06-21] MEDS: SODIUM CHLORIDE 0.9% 10ML INJ IV PRN (06:16)
[2021-06-21] MEDS: PANTOPRAZOLE 40 MG INJ IVP SCH (06:16)
[2021-06-21] MEDS: MORPHINE 4 MG/ML SYR IV PRN ×2 (06:24→13:43)
[2021-06-21] MEDS ORDERED: CLINDAMYCIN IV 150 MG/ML (6 mL) VIAL ONE ×2 (08:43→18:42)
[2021-06-21] MEDS: DULERA 200/5 (MOMETASONE/FORMOTEROL) INHALER IH SCH ×2 (09:00→21:00)
[2021-06-21] MEDS: EDARBI 80 MG PO SCH (09:00)
[2021-06-21] MEDS: FUROSEMIDE 40 MG TABLET PO SCH (09:43)
[2021-06-21] MEDS: HYDRALAZINE HCL 25 MG TABLET PO SCH (09:43)
[2021-06-21] MEDS ORDERED: METOCLOPRAMIDE 10 MG/2mL INJ IV ONE (13:00)
--- NOTE | 2021-06-21 14:08 | P.PN ---
Date of Service: 06/21/21 S: Patient feels well, but still having nausea and vomiting. Yesterday evening. Early this morning had some bowel movements. However since then has been throwing up bilious material. O: Clinically the patient looks well, he is not having abdominal pain. Has some hyper active bowel sounds. His nausea is his worst issue at the moment. A: Patient recently underwent exploratory laparotomy with a small bowel resection. The intestines were returned to their normal anatomical position. The small bowel was run all the way to the ileocecal valve and grossly the right colon transverse and descending were palpated. No evidence of any obstructive source was seen at that time. His bowel had been quite dilated however. He has inadvertently pulled out his NG tube and and so far has had a prolonged postop ileus. P: Patient has been vomiting, and has essentially decompressed his abdomen. I will give him some Reglan today to see if we could help both with his nausea and to increase his GI motility. We will also order a fleets enema. This evening, once he has settled, we will restart his IV fluids.
[2021-06-21 14:13] VITALS: BMI 32.5
[2021-06-21] MEDS: HYDROCODONE/APAP 7.5/325 MG TAB PO PRN ×2 (17:49→21:02)
[2021-06-21] MEDS: DIAZEPAM 5 MG TABLET PO PRN (21:01)
[2021-06-21] MEDS: NYSTATIN 500,000 UNIT/5 ML UDC PO SCH (21:02)
[2021-06-21] MEDS: D5.45NS W/KCL 20MEQ 20 MEQ/1,000 ML BAG IV SCH (21:42)
[2021-06-22] MEDS: ONDANSETRON 4 MG/2 ML VIAL IV PRN ×3 (01:34→16:56)
[2021-06-22] MEDS: HYDROCODONE/APAP 7.5/325 MG TAB PO PRN ×3 (02:13→17:07)
[2021-06-22] MEDS: DIAZEPAM 5 MG TABLET PO PRN (02:13)
--- NOTE | 2021-06-22 02:18 | P.PN ---
Date of Service: 06/22/21 Subjective Patient with persistent nausea and vomiting this morning. Surgery to evaluate Review of Systems 10-point ROS is otherwise unremarkable Physical Examination - Vital Signs Reviewed - Physical Exam General: Alert, In no apparent distress, Oriented x3 Respiratory: Clear to auscultation bilaterally, Normal air movement Cardiovascular: Regular rate/rhythm, Normal S1 S2 Gastrointestinal: Hypoactive, Distended, Tenderness Musculoskeletal: No clubbing, No swelling, No tenderness Neurological: Other (NO FOCAL DEFICITS) Assessment & Plan - Problems (Diagnosis) (1) Abdominal pain Current Visit: Yes Status: Acute (2) Small bowel obstruction Current Visit: Yes Status: Acute (3) Ileus Current Visit: Yes Status: Acute (4) Hypertension Current Visit: Yes Status: Acute (5) Obesity hypoventilation syndrome Current Visit: Yes Status: Acute - Plan Continue plan of care as mentioned below: 1. Continue with IV hydration 2. Continue with IV antibiotics 3. Continue with pain control 4. NPO 5. General surgery consultation; PROKINETIC AGENTS 6. Serial H&H, and we will monitor CBC, BMP, LFTs and lipase along with electrolytes. 7. Repeat abdominal films 8. May need CT scan 9. GI and DVT prophylaxis
--- NOTE | 2021-06-22 02:18 | P.PN ---
Subjective Date of Service: 06/21/21 PATIENT WITH INTRACTABLE NAUSEA AND VOMITING THIS MORNING. SPOKE TO GENERAL SURGERY AND WILL CONTINUE TO MONITOR PATIENT FOR ILEUS/SMALL-BOWEL OBSTRUCTION. CONTINUE WITH HYDRATION AND ANTI EMETICS. MAY GIVE A DOSE OF ERYTHROMYCIN. Review of Systems 10-point ROS is otherwise unremarkable Physical Examination - Vital Signs Temperature: 98.5 F Blood Pressure: 149/76 Pulse: 77 Respirations: 18 Pulse Ox (%): 98 - Physical Exam General: Alert, In no apparent distress, Oriented x3 Respiratory: Clear to auscultation bilaterally, Normal air movement Cardiovascular: Regular rate/rhythm, Normal S1 S2 Gastrointestinal: Hypoactive, Distended, Tenderness Musculoskeletal: No clubbing, No swelling, No tenderness Neurological: Other (NO FOCAL DEFICITS) - Studies Medications List Reviewed: Yes Assessment & Plan - Problems (Diagnosis) (1) Abdominal pain Current Visit: Yes Status: Acute (2) Small bowel obstruction Current Visit: Yes Status: Acute (3) Ileus Current Visit: Yes Status: Acute (4) Hypertension Current Visit: Yes Status: Acute (5) Obesity hypoventilation syndrome Current Visit: Yes Status: Acute - Plan 1. Continue with IV hydration 2. Continue with IV antibiotics 3. Continue with pain control 4. NPO 5. General surgery consultation; PROKINETIC AGENTS 6. Serial H&H, and we will monitor CBC, BMP, LFTs and lipase along with electrolytes. 7. Repeat abdominal films 8. May need CT scan 9. GI and DVT prophylaxis Discharge Plan: Home Plan to discharge in: Greater than 2 days - Advance Directives Does patient have a Living Will: No Does patient have a Durable POA for Healthcare: No - Code Status/Comfort Care Code Status Assessed: Yes Code Status: Full Code Critical Care: No Time Spent Managing PTS Care (In Minutes): 35
[2021-06-22] MEDS: D5.45NS W/KCL 20MEQ 20 MEQ/1,000 ML BAG IV SCH (05:35)
[2021-06-22 05:55] LABS: Absolute Lymphocytes (CBC) 0.5 K/uL (0.7-4.9); Basophils % 0.2 % (0-1.3); Hematocrit 34.4 % (39.6-49.0); Lymphocytes % 7.9 % (15.3-44.8); MPV 8.1 fL (7.6-11.3); RBC Red Blood Cell Count 4.08 M/uL (4.33-5.43)
[2021-06-22 06:14] LABS: Albumin 2.5 g/dL (3.4-5.0); Bilirubin Direct 0.2 mg/dL (0-0.2); Bilirubin Total 0.7 mg/dL (0.2-1.0); Potassium 5.4 mmol/L (3.5-5.1); Protein, Total 6.1 g/dL (6.4-8.2)
--- NOTE | 2021-06-22 08:54 | RAD REPORT ---
EXAM DESCRIPTION: RAD - Abdomen W Erect - 06/22/2021 8:04 am CLINICAL HISTORY: sbo/ileus Pain COMPARISON: Abdomen 1 View (KUB) dated 06/20/2021 FINDINGS: Mild improvement is seen in the distended small bowel loops in the left abdomen. There con tinues to be distention of several bowel loops in the region, however. Cholecystectomy clips. Skin gabriele are noted. IMPRESSION: Mild improvement in left-sided distended small-bowel loops since comparative study.
[2021-06-22] MEDS: EDARBI 80 MG PO SCH (09:00)
[2021-06-22] MEDS: ERYTHROMYCIN 200 MG/5ML 100ML PO SCH ×3 (09:00→16:57)
[2021-06-22] MEDS: PANTOPRAZOLE 40 MG INJ IVP SCH (09:00)
[2021-06-22] MEDS: DULERA 200/5 (MOMETASONE/FORMOTEROL) INHALER IH SCH ×2 (09:00→21:00)
[2021-06-22] MEDS: NYSTATIN 500,000 UNIT/5 ML UDC PO SCH ×4 (09:00→21:16)
[2021-06-22] MEDS: HYDRALAZINE HCL 25 MG TABLET PO SCH (09:00)
[2021-06-22] MEDS: FUROSEMIDE 40 MG TABLET PO SCH (09:05)
[2021-06-22] MEDS: D5 0.45 NS 1,000 ML IV SCH (12:04)
[2021-06-22] MEDS: VALSARTAN 160 MG TAB PO SCH (12:17)
[2021-06-22] MEDS ORDERED: ACETAMINOPHEN 500 MG TAB PO PRN (12:48)
[2021-06-22] MEDS ORDERED: ACETAMINOPHEN 325 MG TABLET PO PRN (12:54)
--- NOTE | 2021-06-22 13:42 | P.PN ---
Date of Service: 06/22/21 S: Patient feels better today, no pain since 3 AM, has not required any pain medication. O: Clinically looks very well. Incisions are clean. Abdomen essentially normal soft. A: Postop ileus appears to be resolving P: Continue current therapy. Antibiotics have been DC'd. IV fluids. Repeat labs. Will not order CT scan at this time as I do not want to distend him with the oral contrast. If symptoms recur, may order it in the future.
[2021-06-22] MEDS ORDERED: HYDROCORTISONE SUC 100 MG INJ IV ONE (19:00)
[2021-06-22] MEDS ORDERED: METOCLOPRAMIDE 10 MG/2mL INJ IV SCH (19:00)
[2021-06-22] MEDS: METOCLOPRAMIDE 10 MG/2mL INJ IV SCH (21:16)
[2021-06-22] MEDS: FAMOTIDINE 20 MG/2 ML VIAL IV SCH (21:19)
[2021-06-23] MEDS: D5 0.45 NS 1,000 ML IV SCH ×2 (00:38→16:57)
[2021-06-23] MEDS: ONDANSETRON 4 MG/2 ML VIAL IV PRN ×2 (01:54→19:25)
[2021-06-23] MEDS: DIAZEPAM 5 MG TABLET PO PRN (01:54)
[2021-06-23] MEDS: HYDROCODONE/APAP 7.5/325 MG TAB PO PRN (05:01)
[2021-06-23] MEDS: ERYTHROMYCIN 200 MG/5ML 100ML PO SCH ×4 (05:57→18:12)
[2021-06-23 06:33] LABS: Basophils % 0.6 % (0-1.3); Lymphocytes % 14.9 % (15.3-44.8); MPV 7.9 fL (7.6-11.3); RBC Red Blood Cell Count 4.72 M/uL (4.33-5.43)
[2021-06-23 06:47] LABS: Albumin 3.2 g/dL (3.4-5.0); Bilirubin Total 0.7 mg/dL (0.2-1.0); Magnesium 2.2 mg/dL (1.8-2.4); Phosphorus 2.6 mg/dL (2.5-4.9); Potassium 3.6 mmol/L (3.5-5.1); Protein, Total 7.3 g/dL (6.4-8.2)
[2021-06-23] MEDS: FAMOTIDINE 20 MG/2 ML VIAL IV SCH ×2 (08:11→21:54)
[2021-06-23] MEDS: PANTOPRAZOLE 40 MG INJ IVP SCH (08:11)
[2021-06-23] MEDS: METOCLOPRAMIDE 10 MG/2mL INJ IV SCH ×5 (08:12→21:44)
[2021-06-23] MEDS: DULERA 200/5 (MOMETASONE/FORMOTEROL) INHALER IH SCH ×2 (09:00→21:00)
--- NOTE | 2021-06-23 09:42 | RAD REPORT ---
EXAM DESCRIPTION: CTAbdomen Pelvis Wo Contrast - 06/23/2021 8:50 am CLINICAL HISTORY: vomiting s/p exp. Lap with bowel resection COMPARISON: Abdomen Pelvis W Contrast dated 06/14/2021; Abdomen Pelvis W/Wo Contrast dated 019; CT-STONE PROTOCOL dated 08/17/2008; CT ABD PELVIS W CONTRAST dated 06/09/2002; Abdomen W Erect dated 06/22/2021 TECHNIQUE: CT of the abdomen and pelvis was performed. All CT scans are performed using dose optimization technique as appropriate and may include automated exposure control or mA/KV adjustment according to patient size. FINDINGS: Lower chest: Mild micro nodularity in left lower lobe. Ascending aortic aneurysm measuring 4.3 cm . Liver: Hepatic steatosis. Biliary: Cholecystectomy. Stomach: No significant focal abnormality. Duodenum: No significant focal abnormality. Pancreas: No significant abnormality. Spleen: No significant abnormality. Adrenal: Adrenal nodules are unchanged. Kidney/ureter: No hydronephrosis. No renal calculi. Left renal sinus cyst. Retroperitoneum: No retroperitoneal adenopathy. Vascular: No aneurysm. Bowel: Persistent small-bowel dilatation with transition point in the central abdomen. The degree of small bowel dilatation has improved as has the small bowel wall thickening. Some enteric contrast ulrich s traverse the site of obstruction.. Peritoneum: No ascites or free air. Bladder: Grossly unremarkable. Reproductive: No adnexal masses. Mild prostatomegaly. Bones: No acute fracture. Other: n/a IMPRESSION: Mild improvement in small bowel dilatation status post small bowel resection. Enteric co ntrast reaches the descending colon which excludes a high-grade bowel obstruction. Findings most like ly represent a postoperative ileus.
[2021-06-23] MEDS ORDERED: POTASSIUM CL SA 10 MEQ TAB PO ONE (10:46)
[2021-06-23] MEDS: NYSTATIN 500,000 UNIT/5 ML UDC PO SCH ×4 (11:03→21:44)
[2021-06-23] MEDS: HYDRALAZINE HCL 25 MG TABLET PO SCH (11:04)
[2021-06-23] MEDS: FUROSEMIDE 40 MG TABLET PO SCH (11:04)
[2021-06-23] MEDS: VALSARTAN 160 MG TAB PO SCH (11:08)
--- NOTE | 2021-06-23 13:07 | P.PN ---
Date of Service: 06/23/21 Subjective Patient is improving today. CT does not show significant small bowel dilatation anti contrast as made it all the way through into the colon. Patient does not have a small-bowel obstruction. Review of Systems 10-point ROS is otherwise unremarkable Physical Examination - Vital Signs Reviewed - Physical Exam General: Alert, In no apparent distress, Oriented x3 Respiratory: Clear to auscultation bilaterally, Normal air movement Cardiovascular: Regular rate/rhythm, Normal S1 S2 Gastrointestinal: Hypoactive, Distended, Tenderness Musculoskeletal: No clubbing, No swelling, No tenderness Neurological: Other (NO FOCAL DEFICITS) Assessment & Plan - Problems (Diagnosis) (1) Abdominal pain Current Visit: Yes Status: Acute (2) Small bowel obstruction Current Visit: Yes Status: Acute (3) Ileus Current Visit: Yes Status: Acute (4) Hypertension Current Visit: Yes Status: Acute (5) Obesity hypoventilation syndrome Current Visit: Yes Status: Acute - Plan Continue plan of care as mentioned below: 1. Continue with IV hydration 2. Continue with IV antibiotics 3. Continue with pain control 4. Liquid diet as tolerated advanced to soft in the morning NPO 5. General surgery consultation; PROKINETIC AGENTS added; CT scan with contrast going all the way through into the colon 6. Monitor labs 7. GI and DVT prophylaxis
[2021-06-23] MEDS ORDERED: MAGNES/ALUMIN/SIMET 30ML UCUP PO PRN (14:10)
--- NOTE | 2021-06-23 14:25 | P.PN ---
Date of Service: 06/23/21 S: Patient started vomiting again last night. Had some hard cramping abdominal pain. O: This afternoon he is up ambulating, feels better, still has a feeling like he wants to vomit. Did have some bowel movements today. A: CT scan it was ordered this morning shows no evidence of obstruction. Still has postoperative ileus. PE: To new current therapy, but it appears the patient's intestines are starting to wake up.
[2021-06-23] MEDS: MAGNES/ALUMIN/SIMET 30ML UCUP PO PRN (15:01)
[2021-06-23] MEDS: IPRATROPIUM BROM 0.5MG/2.5ML NEB PRN (16:41)
[2021-06-23] MEDS: ALBUTEROL 2.5 MG/3 ML NEB SOL NEB PRN (16:41)
[2021-06-23] MEDS ORDERED: MORPHINE 4 MG/ML SYR IV ONE (19:42)
[2021-06-23] MEDS: ENSURE HIGH PROTEIN 237 ML CAN PO SCH (21:00)
[2021-06-23] MEDS ORDERED: FAMOTIDINE 20 MG TAB PO SCH (21:00)
[2021-06-23] MEDS: cloNIDine HCL 0.1 MG TAB PO PRN (21:45)
[2021-06-24] MEDS: DIAZEPAM 5 MG TABLET PO PRN (00:38)
[2021-06-24] MEDS: MAGNES/ALUMIN/SIMET 30ML UCUP PO PRN ×4 (00:39→22:27)
[2021-06-24] MEDS: ERYTHROMYCIN 200 MG/5ML 100ML PO SCH ×2 (00:39→06:27)
[2021-06-24] MEDS: ONDANSETRON 4 MG/2 ML VIAL IV PRN ×2 (02:44→22:29)
[2021-06-24] MEDS: D5 0.45 NS 1,000 ML IV SCH ×2 (03:45→16:20)
[2021-06-24 06:00] LABS: Magnesium 2.4 mg/dL (1.8-2.4); Potassium 3.8 mmol/L (3.5-5.1)
[2021-06-24 06:16] LABS: Absolute Lymphocytes (CBC) 1.2 K/uL (0.7-4.9); Basophils % 0.8 % (0-1.3); Lymphocytes % 13.8 % (15.3-44.8); MPV 7.8 fL (7.6-11.3); RBC Red Blood Cell Count 4.86 M/uL (4.33-5.43)
[2021-06-24] MEDS: PANTOPRAZOLE 40 MG INJ IVP SCH (08:29)
[2021-06-24] MEDS: FAMOTIDINE 20 MG/2 ML VIAL IV SCH ×2 (08:29→22:28)
[2021-06-24] MEDS: FUROSEMIDE 40 MG TABLET PO SCH (08:30)
[2021-06-24] MEDS: METOCLOPRAMIDE 10 MG/2mL INJ IV SCH ×5 (08:30→22:30)
[2021-06-24] MEDS: VALSARTAN 160 MG TAB PO SCH (08:33)
[2021-06-24] MEDS: HYDRALAZINE HCL 25 MG TABLET PO SCH (08:33)
[2021-06-24] MEDS: ENSURE HIGH PROTEIN 237 ML CAN PO SCH ×2 (08:34→21:00)
[2021-06-24] MEDS: NYSTATIN 500,000 UNIT/5 ML UDC PO SCH ×4 (08:34→22:29)
[2021-06-24] MEDS: DULERA 200/5 (MOMETASONE/FORMOTEROL) INHALER IH SCH ×2 (08:34→21:00)
[2021-06-24] MEDS ORDERED: POTASSIUM CL SA 10 MEQ TAB PO ONE (09:00)
[2021-06-24] MEDS: FLUCONAZOLE 200mg IVPB 200 MG/100 ML BAG IV SCH (09:27)
[2021-06-24] MEDS: clonazePAM 0.5 MG TAB PO SCH ×3 (09:27→22:28)
[2021-06-24] MEDS: cloNIDine HCL 0.1 MG TAB PO PRN (15:39)
--- NOTE | 2021-06-24 23:57 | P.PN ---
Date of Service: 06/24/21 Subjective Patient continues to do better. Requesting Pepcid twice a day. Anxiolytics have been given. Review of Systems 10-point ROS is otherwise unremarkable Physical Examination - Vital Signs Reviewed - Physical Exam General: Alert, In no apparent distress, Oriented x3 Respiratory: Clear to auscultation bilaterally, Normal air movement Cardiovascular: Regular rate/rhythm, Normal S1 S2 Gastrointestinal: Hypoactive, Distended, appropriately Tenderness Musculoskeletal: No clubbing, No swelling, No tenderness Neurological: Other (NO FOCAL DEFICITS) Assessment & Plan - Problems (Diagnosis) (1) Abdominal pain Current Visit: Yes Status: Acute (2) Small bowel obstruction status post small-bowel resection Current Visit: Yes Status: Acute (3) Ileus Current Visit: Yes Status: Acute (4) Hypertension Current Visit: Yes Status: Acute (5) Obesity hypoventilation syndrome Current Visit: Yes Status: Acute - Plan Continue plan of care as mentioned below: 1. Hep-Lock IV 2. Oral antibiotic 3. Continue with pain control 4. Advanced diet as tolerated 5. Continue with General surgery monitoring 6. Monitor labs 7. GI and DVT prophylaxis
[2021-06-25] MEDS: MAGNES/ALUMIN/SIMET 30ML UCUP PO PRN ×4 (04:49→20:18)
[2021-06-25] MEDS: D5 0.45 NS 1,000 ML IV SCH ×2 (04:50→19:00)
[2021-06-25 05:28] LABS: Absolute Lymphocytes (CBC) 0.9 K/uL (0.7-4.9); Basophils % 0.6 % (0-1.3); Hematocrit 39.3 % (39.6-49.0); Lymphocytes % 11.8 % (15.3-44.8); MPV 7.9 fL (7.6-11.3); RBC Red Blood Cell Count 4.75 M/uL (4.33-5.43)
[2021-06-25 05:44] LABS: Potassium 3.7 mmol/L (3.5-5.1)
[2021-06-25] MEDS: PANTOPRAZOLE 40 MG INJ IVP SCH (08:30)
[2021-06-25] MEDS: METOCLOPRAMIDE 10 MG/2mL INJ IV SCH ×5 (08:31→20:19)
[2021-06-25] MEDS: HYDRALAZINE HCL 25 MG TABLET PO SCH (08:31)
[2021-06-25] MEDS: FAMOTIDINE 20 MG/2 ML VIAL IV SCH ×2 (08:31→20:19)
[2021-06-25] MEDS: clonazePAM 0.5 MG TAB PO SCH ×3 (08:32→20:15)
[2021-06-25] MEDS: VALSARTAN 160 MG TAB PO SCH (08:32)
[2021-06-25] MEDS: FUROSEMIDE 40 MG TABLET PO SCH (08:32)
[2021-06-25] MEDS: SODIUM CHLORIDE 0.9% 10ML INJ IV PRN (08:33)
[2021-06-25] MEDS: ENSURE HIGH PROTEIN 237 ML CAN PO SCH ×2 (08:34→20:19)
[2021-06-25] MEDS: DULERA 200/5 (MOMETASONE/FORMOTEROL) INHALER IH SCH ×2 (08:34→20:12)
[2021-06-25] MEDS: NYSTATIN 500,000 UNIT/5 ML UDC PO SCH ×4 (08:35→20:52)
[2021-06-25] MEDS: FLUCONAZOLE 200mg IVPB 200 MG/100 ML BAG IV SCH (08:36)
[2021-06-25] MEDS ORDERED: POTASSIUM CL SA 10 MEQ TAB PO ONE (09:00)
--- NOTE | 2021-06-25 10:44 | P.PN ---
Subjective Date of Service: 06/25/21 Primary Care Provider: Dr. Saunders Subjective: Other (Patient reports improvement. Still with poor intake some passage of gas.) Physical Examination - Vital Signs Temperature: 97.7 F Blood Pressure: 171/95 Pulse: 71 Respirations: 18 Pulse Ox (%): 97 - Studies Medications List Reviewed: Yes Assessment & Plan Discharge Plan: Home Plan to discharge in: 24 Hours Physician Review Additional Text: COVID: Negative CT scan: COMPARISON: CT ABD PELVIS W CONTRAST dated 06/09/2002 TECHNIQUE: Biphasic, helical CT imaging of the abdomen and pelvis was performed following 100 ml non-ionic IV contrast. No oral contrast administered. All CT scans are performed using dose optimization technique as appropriate and may include automated exposure control or mA/KV adjustment according to patient size. FINDINGS: No suspicious findings in the lung bases. Liver shows a very pronounced diffuse fatty infiltration pattern with no focal lesion. No portal vein abnormality. Spleen and pancreas are unremarkable. Cholecystectomy clips are present with no biliary tree dilatation. Symmetric renal function is seen with no hydronephrosis or suspicious renal mass. No pyelonephritis or acute parenchymal process. A 15 millimeter exophytic lower pole right renal cyst is new or fractionally enlarged from the rib far remote comparison. A new or slightly enlarged 15 millimeter cyst is present in the lateral mid right kidney. A 3 centimeter left parapelvic cyst is new from 2001. A 12 millimeter lower pole left renal cyst also new. Left adrenal gland is stable. A small 17 millimeter low-density right adrenal mass appears to be new from 2001. Incidental adrenal adenoma is most likely. Stomach is fluid-filled but not grossly dilated. No gastric wall thickening or mass. No gastric outlet obstruction seen. Peristalsis affect creates thickening in the distal body of the stomach. Duodenum is unremarkable. Proximal jejunum is also unremarkable. There is progressive dilatation in the mid small bowel up to 4.5 cm in diameter. There is circumferential wall thickening of these bowel loops. Transition back to normal diameter is seen in the anterior mid abdomen at the umbilical level. Distal small bowel including terminal ileum are decompressed. Colon is mostly decompressed. Trace diverticulosis noted on the left. No free air or pneumatosis. There is a trace amount of free fluid in the peritoneal cavity. No mass or bulky lymphadenopathy seen. Fat extends into the origins of the each inguinal canal. Disc and bone degenerative changes are present. No pathologic bone process. IMPRESSION: Multiple dilated small bowel loops with circumferential wall thickening. Bowel transitions back to a normal diameter in the periumbilical region. Early mechanical small bowel obstruction from adhesion or internal hernia suspected. Prominent small bowel enteritis is possible as well. No free air, abscess or surgically emergent finding. Additional nonacute findings detailed in the body of the report. Surgery: Date of surgery: 06/15/2021 Preop diagnosis: Small bowel obstruction Postoperative diagnosis: Same Primary procedure: Laparoscopic Secondary procedure: Exploratory laparotomy Other procedure: Small bowel resection Anesthesia: General Estimated blood loss: Less than [address] 06/23/2021: COMPARISON: Abdomen Pelvis W Contrast dated 06/14/2021; Abdomen Pelvis W/Wo Contrast dated 09/24/2018; CT-STONE PROTOCOL dated 08/17/2008; CT ABD PELVIS W CONTRAST dated 06/09/2002; Abdomen W Erect dated 06/22/2021 TECHNIQUE: CT of the abdomen and pelvis was performed. All CT scans are performed using dose optimization technique as appropriate and may include automated exposure control or mA/KV adjustment according to patient size. FINDINGS: Lower chest: Mild micro nodularity in left lower lobe. Ascending aortic aneurysm measuring 4.3 cm . Liver: Hepatic steatosis. Biliary: Cholecystectomy. Stomach: No significant focal abnormality. Duodenum: No significant focal abnormality. Pancreas: No significant abnormality. Spleen: No significant abnormality. Adrenal: Adrenal nodules are unchanged. Kidney/ureter: No hydronephrosis. No renal calculi. Left renal sinus cyst. Retroperitoneum: No retroperitoneal adenopathy. Vascular: No aneurysm. Bowel: Persistent small-bowel dilatation with transition point in the central abdomen. The degree of small bowel dilatation has improved as has the small bowel wall thickening. Some enteric contrast does traverse the site of obstruction.. Peritoneum: No ascites or free air. Bladder: Grossly unremarkable. Reproductive: No adnexal masses. Mild prostatomegaly. Bones: No acute fracture IMPRESSION: Mild improvement in small bowel dilatation status post small bowel resection. Enteric contrast reaches the descending colon which excludes a high- grade bowel obstruction. Findings most likely represent a postoperative ileus. Physical exam: General: Alert, In no apparent distress, Oriented x3 Respiratory: Clear to auscultation bilaterally, Normal air movement Cardiovascular: Regular rate/rhythm, Normal S1 S2 Gastrointestinal: Hypoactive bowel sounds. No significant pain. Minimal distention Musculoskeletal: No clubbing, No swelling, No tenderness Neurological: Other (NO FOCAL DEFICITS) Impression: Abdominal pain secondary to high-grade small bowel obstruction status post laparoscopic, exploratory laparotomy and small bowel resection complicated with postoperative ileus Hypertension Obstructive sleep apnea COPD GERD Gout Plan: Abdominal pain secondary to high-grade small bowel obstruction status post laparoscopic, exploratory laparotomy and small bowel resection complicated with postoperative ileus: Overall improved. Patient remains on IV fluids. Encourage ambulation. Encourage incentive spirometer. Diet to be advanced to soft diet. Will discuss with PCP who will take over today. Await recommendations by surgery. Anticipate home likely in the next 24 to 48 hours if patient able to tolerate diet. Hypertension: Continue with valsartan and hydralazine. We will continue to monitor and adjust appropriately. Obstructive sleep apnea: Continue with CPAP at night COPD: Continue with COPD medication GERD: Continue with Protonix Gout: Continue with allopurinol DVT prophylaxis: Lovenox CODE STATUS: Full code Advance care [id number] minutes: Home at discharge Time Spent Managing Pts Care (In Minutes): 55
[2021-06-25] MEDS: ENOXAPARIN 40 MG/0.4 ML SQ SCH (16:30)
[2021-06-26] MEDS: MAGNES/ALUMIN/SIMET 30ML UCUP PO PRN ×4 (01:03→20:17)
[2021-06-26] MEDS: METOCLOPRAMIDE 10 MG/2mL INJ IV SCH ×5 (07:30→20:19)
[2021-06-26] MEDS: D5 0.45 NS 1,000 ML IV SCH ×2 (08:20→22:21)
[2021-06-26] MEDS: NYSTATIN 500,000 UNIT/5 ML UDC PO SCH ×4 (08:35→20:19)
[2021-06-26] MEDS: FAMOTIDINE 20 MG/2 ML VIAL IV SCH (08:35)
[2021-06-26] MEDS: PANTOPRAZOLE 40 MG INJ IVP SCH (08:35)
[2021-06-26] MEDS: FUROSEMIDE 40 MG TABLET PO SCH (08:36)
[2021-06-26] MEDS: clonazePAM 0.5 MG TAB PO SCH ×3 (08:36→22:21)
[2021-06-26] MEDS: HYDRALAZINE HCL 25 MG TABLET PO SCH (08:36)
[2021-06-26] MEDS: VALSARTAN 160 MG TAB PO SCH (08:37)
[2021-06-26] MEDS: DULERA 200/5 (MOMETASONE/FORMOTEROL) INHALER IH SCH ×2 (08:37→20:18)
[2021-06-26] MEDS: ENSURE HIGH PROTEIN 237 ML CAN PO SCH ×2 (08:38→20:18)
[2021-06-26] MEDS: allopurinoL 300 MG TAB PO SCH (08:40)
[2021-06-26] MEDS ORDERED: BISACODYL 10 MG RECTAL SUPP PR ONE (15:08)
[2021-06-26] MEDS: ENOXAPARIN 40 MG/0.4 ML SQ SCH (17:00)
[2021-06-26] MEDS ORDERED: BISACODYL 10 MG RECTAL SUPP PR PRN (19:26)
[2021-06-26] MEDS: FAMOTIDINE 20 MG TAB PO SCH (20:22)
[2021-06-27] MEDS: MAGNES/ALUMIN/SIMET 30ML UCUP PO PRN ×2 (01:24→14:21)
[2021-06-27] MEDS ORDERED: PANTOPRAZOLE 40MG TABLET PO SCH (06:30)
[2021-06-27] MEDS: METOCLOPRAMIDE 10 MG/2mL INJ IV SCH ×2 (07:30→10:49)
[2021-06-27] MEDS: allopurinoL 300 MG TAB PO SCH (08:36)
[2021-06-27] MEDS: clonazePAM 0.5 MG TAB PO SCH ×2 (08:37→13:51)
[2021-06-27] MEDS: FUROSEMIDE 40 MG TABLET PO SCH (08:37)
[2021-06-27] MEDS: HYDRALAZINE HCL 25 MG TABLET PO SCH (08:37)
[2021-06-27] MEDS: ENSURE HIGH PROTEIN 237 ML CAN PO SCH (08:38)
[2021-06-27] MEDS: DULERA 200/5 (MOMETASONE/FORMOTEROL) INHALER IH SCH (08:38)
[2021-06-27] MEDS: FAMOTIDINE 20 MG TAB PO SCH (08:39)
[2021-06-27] MEDS: NYSTATIN 500,000 UNIT/5 ML UDC PO SCH ×2 (08:39→12:25)
[2021-06-27] MEDS: VALSARTAN 160 MG TAB PO SCH (08:42)
[2021-06-27 08:48] VITALS: O2SAT 98
[2021-06-27] MEDS: D5 0.45 NS 1,000 ML IV SCH (10:49)
[2021-06-27] MEDS ORDERED: IPRATROPIUM BROM 0.5MG/2.5ML NEB PRN (11:49)
[2021-06-27] MEDS ORDERED: ALBUTEROL 2.5 MG/3 ML NEB SOL NEB PRN (11:50)
[2021-06-27 12:28] VITALS: BP 154/90; TEMP 97.7
--- NOTE | 2021-06-27 13:48 | P.PN ---
Date of Service: 06/27/21 S: Patient feels terrific today, back to his normal self. O: Incision is clean, vital signs are stable A: Surgically stable status post exploratory laparotomy for small bowel obstruction with prolonged postoperative ileus. PE: Discharge patient, he will see me next week in my office. We will just verify with Dr. Saunders before he leaves.
--- NOTE | 2021-06-28 15:17 | PN ---
Date of Progress Note: 06/26/2021 Subjective: The patient seems somewhat better today. He states he is passing some gas and small jennifer unt of stool. He still has some GI discomfort generalized. However, he feels he is making some prog ress and clinically, this is valid until the next day or so. He should be able to be discharged with diet modifications. HR/MODL Voice ID: [id number] Report ID: [id number]
--- NOTE | 2021-06-28 15:32 | PN ---
Date of Progress Note: 06/27/2021 Subjective: The patient seems much better today. The use of antacid on a more frequent basis plus t he addition of Dulcolax suppositories made some significant difference to him and his symptoms of bow el movements. He states they are basically back to normal. The abdomen is nontender. Minimal diste ntion. He is tolerating his food and feels he can handle his home situation and agreed to by the [facility] janey as he could be discharged on dietary control, emphasizing fluids, return to his usual medication , and follow up next week with Dr. Degroot and two weeks with me. He utilizes suppository on a p.r.n . basis and some question of utilization of at this stage he only does on his own. HR/MODL Voice ID: [id number] Report ID: [id number]
== END 2021-06-27 16:22 | disposition home or self-care (01) | DRG 330 ==
LOC: ER 08:44 → ERHOLD 11:27 → 2ND 18:38
PROVIDERS: ADMIT Hospitalist; ATTEND Family Medicine
PROC: 5A09557 Assistance with Respiratory Ventilation, Greater than 96 Consecutive Hours, Continuous Positive Airway Pressure (ICD-10-PCS; 2021-06-15)
PROC: 0DB80ZZ Excision of Small Intestine, Open Approach (ICD-10-PCS; principal; 2021-06-15 13:00)
PROC: 02HV33Z Insertion of Infusion Device into Superior Vena Cava, Percutaneous Approach (ICD-10-PCS; 2021-06-18)
PROC: 3E0436Z Introduction of Nutritional Substance into Central Vein, Percutaneous Approach (ICD-10-PCS; 2021-06-18)
DX: K56.600 Partial intestinal obstruction, unspecified as to cause (principal); B37.0 Candidal stomatitis; L03.113 Cellulitis of right upper limb; E66.2 Morbid (severe) obesity with alveolar hypoventilation; I10 Essential (primary) hypertension; K21.9 Gastro-esophageal reflux disease without esophagitis; E86.0 Dehydration; J98.4 Other disorders of lung; K56.7 Ileus, unspecified; G47.33 Obstructive sleep apnea (adult) (pediatric); J44.9 Chronic obstructive pulmonary disease, unspecified; M10.9 Gout, unspecified; Z68.32 Body mass index [BMI] 32.0-32.9, adult; Z79.899 Other long term (current) drug therapy; Z20.822 Contact with and (suspected) exposure to COVID-19
CPT/HCPCS: 36415; 36569; 71045; 74018; 74019; 74176; 74177; 80048; 80053; 80076; 82805; 82947; 83690; 83735; 84100; 84132; 84478; 85025; 87804; 88305; 88307; 93005; 94010; 94640; 94660; 94760; 97161; 99285; C9113; J0694; J1100; J1450; J1650; J1720; J1940; J2250; J2270; J2405; J2550; J2704; J2710; J2765; J3010; J3480; J7030; J7050; J7120; J7606; J7799; Q9967; U0003

== ENCOUNTER 2021-07-14 00:27 | Emergency (ER) | payer BC ==
[2021-07-14] MEDS ORDERED: IPRATROPIUM BROM 0.5MG/2.5ML ONE (01:59)
[2021-07-14] MEDS ORDERED: ALBUTEROL 2.5 MG/3 ML NEB SOL ONE (01:59)
[2021-07-14 02:16] LABS: Absolute Lymphocytes (CBC) 1.4 K/uL (0.7-4.9); Basophils % 0.7 % (0-1.3); Hematocrit 39.1 % (39.6-49.0); Lymphocytes % 19.7 % (15.3-44.8); MPV 7.9 fL (7.6-11.3); RBC Red Blood Cell Count 4.65 M/uL (4.33-5.43)
[2021-07-14 02:30] LABS: BUN Blood Urea Nitrogen 22 mg/dL (7-18); Bicarbonate 28 mmol/L (21-32); Glucose Level 299 mg/dL (74-106); Magnesium 2.2 mg/dL (1.8-2.4); NT PRO-BNP 53 pg/mL (<125); Potassium 3.7 mmol/L (3.5-5.1); Sodium Level 140 mmol/L (136-145); Troponin (Emerg Dept Use Only) < 0.02 ng/mL (0.0-0.045)
[2021-07-14] MEDS ORDERED: NA CHLORIDE 0.9% 1,000 ML ONE (03:04)
--- NOTE | 2021-07-14 03:41 | RAD REPORT ---
EXAM DESCRIPTION: CT - Chest For Pe Angio - 07/14/2021 3:19 am CLINICAL HISTORY: Chest pain COMPARISON: None. TECHNIQUE: Dynamically enhanced axial 3 mm thick images of the chest were obtained during administra tion of <100> mL Isovue 370 IV contrast. Coronal and oblique reconstruction images were generated and reviewed. Exam utilizes a protocol for optimal evaluation of pulmonary arterial tree. Maximum intensity projections 3D imaging was utilized All CT scans are performed using dose optimization technique as appropriate and may include automated exposure control or mA/KV adjustment according to patient size. FINDINGS: A pulmonary embolus is not seen. A thoracic aortic aneurysm is not noted. A pleural effusion is not seen. A pericardial effusion is not seen. Mild left lung ground glass opacity. Small right adrenal nodule unchanged from 2019 likely adenoma IMPRESSION: Negative for a pulmonary embolism. Mild left lung ground-glass opacities indicative of a mild alveolitis
--- NOTE | 2021-07-14 04:01 | ER ---
Nurse's Notes [facility] Name: Jordna Aj Age: 65 yrs Sex: Male : 1955 Arrival Date: 07/14/2021 Time: 00:30 Bed 2 Private MD: Diagnosis: Pleurisy-Alveolitis Presentation: 07/14 00:56 Chief complaint: Patient states: he had abdominal surgery 07/16 for a bowel obstruction bb but today he has developed chest pain with inspiration denies fever has no other symptoms. Coronavirus screen: difficulty breathing, Client presents with at least one sign or symptom that may indicate coronavirus-19. Standard/surgical mask placed on the client. Ebola Screen: No symptoms or risks identified at this time. Initial Sepsis Screen: Does the patient meet any 2 criteria? No. Patient's initial sepsis screen is negative. Does the patient have a suspected source of infection? No. Patient's initial sepsis screen is negative. Risk Assessment: Do you want to hurt yourself or someone else? Patient reports no desire to harm self or others. Onset of symptoms was July 14, 2021. 00:56 Method Of Arrival: Ambulatory bb 00:56 Acuity: JERRI 3 bb Historical: - Allergies: 00:59 Nifedipine; bb - Home Meds: 00:59 Allopurinol Oral [Active]; Edarbi Oral [Active]; Hydralazine Oral [Active]; Nexium Oral bb [Active]; Advair Diskus 500-50 mcg/dose Inhl dsdv [Active]; Daliresp oral [Active]; Furosemide Oral [Active]; - PMHx: 00:59 GERD; Hypertensive disorder; bowel obstruction; bb - PSHx: 00:59 Appendectomy; Cholecystectomy; bb - Immunization history:: Adult Immunizations up to date, Client reports receiving the 2nd dose of the Covid vaccine. - Social history:: Smoking status: Patient denies any tobacco usage or history of. Screenin:04 Abuse screen: Denies threats or abuse. Nutritional screening: No deficits noted. cc4 Nutritional screening: No deficits noted. Fall Risk None identified. 04:13 Tuberculosis screening: No symptoms or risk factors identified. df1 Assessment: 01:04 Reassessment: Patient appears in no apparent distress at this time. General: Appears in cc4 no apparent distress. uncomfortable, Behavior is calm, cooperative. Pain: Complains of pain in midsternal chest Pain does not radiate. Pain currently is 4 out of 10 on a pain scale. Quality of pain is described as "Feels like pleurisy" Pain began 39907/13/2021 Is intermittent. Neuro: No deficits noted. Level of Consciousness is awake, alert, obeys commands, Oriented to person, place, time, situation. Cardiovascular: No deficits noted. Denies Reports pain upon inspiration. Rhythm is sinus rhythm. Respiratory: Airway is patent Respiratory effort is even, unlabored, Respiratory pattern is regular, symmetrical. Respiratory: Breath sounds with wheezes bilaterally. GI: Abdomen is Healing surgical scar midline abdomen for intestinal obstruction . Bowel sounds present X 4 quads. : No signs and/or symptoms were reported regarding the genitourinary system. EENT: No signs and/or symptoms were reported regarding the EENT system. Derm: Healing midline abdominal surgical incision with no s/sx's of infection. Musculoskeletal: No deficits noted. Range of motion: intact in all extremities. 01:30 Reassessment: # 18 g angiocath inserted right FA x 2 attempts with blood drawn \\T\\ sent cc4 to lab, travis. well.; EKG completed. 01:50 Reassessment: Albuterol/Atrovent neb treatment given, travis. well. cc4 04:12 Respiratory: Respiratory effort is even, unlabored, Respiratory pattern is regular, df1 symmetrical, Breath sounds are clear bilaterally. Vital Signs: 00:56 BP 144 / 97; Pulse 84; Resp 16 S; Temp 98.2; Pulse Ox 99% on R/A; Weight 102.06 kg (R); bb Height 6 ft. 0 in. (182.88 cm) (R); Pain 5/10; 01:04 BP 124 / 91; Pulse 86; Resp 20 S; Temp 98.9(O); Pulse Ox 98% on R/A; cc4 02:30 BP 125 / 88; Pulse 85; Resp 18; Pulse Ox 99% on R/A; df1 04:12 BP 132 / 78; Pulse 84; Resp 18; Pulse Ox 100% on R/A; df1 00:56 Body Mass Index 30.52 (102.06 kg, 182.88 cm) ED Course: 00:30 Patient arrived in ED. bp1 00:59 Triage completed. bb 00:59 Arm band placed on. bb 01:04 Kend[facility] Wolfe [facility]C [facility]. kb 01:04 Justo Kelly MD is Attending Physician. kb 01:04 Patient has correct armband on for positive identification. Bed in low position. Call cc4 light in reach. Side rails up X 1. color television console monitor on. Pulse ox on. NIBP on. 01:42 Inserted saline lock: 18 gauge in right forearm, using aseptic technique. Blood oe collected. 01:43 Marline Phoenix, RN is Primary Nurse. cc4 01:58 CT Chest For PE Angio Sent. cc4 01:58 Basic Metabolic Panel Sent. cc4 01:58 CBC with Diff Sent. cc4 01:58 Magnesium Sent. cc4 01:58 NT PRO-BNP Sent. cc4 01:58 PT-INR Sent. cc4 01:58 Troponin (emerg Dept Use Only) Sent. cc4 02:13 Troponin (emerg Dept Use Only) Sent. cc4 02:13 PT-INR Sent. cc4 02:13 NT PRO-BNP Sent. cc4 02:13 Magnesium Sent. cc4 02:13 CBC with Diff Sent. cc4 02:47 No provider procedures requiring assistance completed. df1 03:19 CT Chest For PE Angio In Process Unspecified. EDMS 04:13 IV discontinued, intact, bleeding controlled, No redness/swelling at site. Pressure df1 dressing applied. Administered Medications: 01:50 Drug: Albuterol 2.5 mg Route: Inhalation; cc4 01:50 Drug: AtroVENT (ipratropium) Aerosol 0.5 mg Route: Inhalation; cc4 03:11 Drug: NS 0.9% 1000 ml Route: IV; Rate: 1000 ml; Site: right antecubital; df1 04:13 Follow up: IV Status: Completed infusion; IV Intake: 1000ml df1 04:11 Drug: LevaQUIN (levofloxacin) 500 mg Route: PO; df1 Intake: 04:13 IV: 1000ml; Total: 1000ml. df1 Outcome: 04:00 Discharge ordered by . [email or web address] 04:12 Discharged to home ambulatory. df1 04:12 Condition: good 04:12 Discharge instructions given to patient, Instructed on discharge instructions, follow up and referral plans. medication usage, Demonstrated understanding of instructions, follow-up care, medications, Prescriptions given X 1. 04:13 Patient left the ED. df1 Signatures: Dispatcher [employer] EDKendal Delvalle, TAMARA-Barbara AEROSP[employer] PROJECT ENGINEER-Becca Williamson, RN RN bb Adrián Choi Brittany bp1 Holmes, Maurice, MD MD 7 Marline Phoenix RN RN 4 Annetta Larkin df1
--- NOTE | 2021-07-14 04:01 | EDPHYS ---
Physician Documentation [facility] Name: Jordan Aj Age: 65 yrs Sex: Male : 1955 Arrival Date: 07/14/2021 Time: 00:30 Bed 2 Private MD: ED Physician Justo Kelly HPI: 07/14 01:13 This 65 yrs old Male presents to ER via Ambulatory with complaints of Pain while kb Inhaling. 01:13 The patient or guardian reports chest pain that is located primarily in the anterior chest wall. Onset: last night. The pain does not radiate. Associated signs and symptoms: The patient has no apparent associated signs or symptoms. The chest pain is described as "pleurisy". Duration: The patient or guardian reports a single episode, that is still ongoing. Modifying factors: The symptoms are alleviated by nothing. the symptoms are aggravated by breathing. Severity of pain: At its worst the pain was moderate in the emergency department the pain is unchanged. The patient has not experienced similar symptoms in the past. The patient has been recently been admitted at [facility]. Pt reports pain on inspiration that started last night. States it feels like pleurisy. Was diagnosed with a bowel obstruction on 06/10/21, had surgery and was admitted for 14 days. States he was discharged on 06/27/21 and didn't have any issues until last night. Historical: - Allergies: 00:59 Nifedipine; bb - Home Meds: 00:59 Allopurinol Oral [Active]; Edarbi Oral [Active]; Hydralazine Oral [Active]; Nexium Oral bb [Active]; Advair Diskus 500-50 mcg/dose Inhl dsdv [Active]; Daliresp oral [Active]; Furosemide Oral [Active]; - PMHx: 00:59 GERD; Hypertensive disorder; bowel obstruction; bb - PSHx: 00:59 Appendectomy; Cholecystectomy; bb - Immunization history:: Adult Immunizations up to date, Client reports receiving the 2nd dose of the Covid vaccine. - Social history:: Smoking status: Patient denies any tobacco usage or history of. ROS: 01:11 Constitutional: Negative for fever, chills, and weight loss. kb 01:11 Respiratory: Positive for pleurisy, of the chest, Negative for cough, dyspnea on exertion, hemoptysis, orthopnea, shortness of breath, sputum production, wheezing. 01:11 All other systems are negative. Exam: 01:12 Constitutional: This is a well developed, well nourished patient who is awake, alert, kb and in no acute distress. Head/Face: Normocephalic, atraumatic. ENT: Moist Mucous membranes Cardiovascular: Regular rate and rhythm with a normal S1 and S2. No gallops, murmurs, or rubs. No pulse deficits. Skin: Warm, dry with normal turgor. Normal color. MS/ Extremity: Pulses equal, no cyanosis. Neurovascular intact. Full, normal range of motion. Neuro: Awake and alert, GCS 15, oriented to person, place, time, and situation. Moves all extremities. Normal gait. Psych: Awake, alert, with orientation to person, place and time. Behavior, mood, and affect are within normal limits. 01:12 Respiratory: the patient does not display signs of respiratory distress, Respirations: normal, Breath sounds: wheezing: inspiratory expiratory that is moderate, is scattered, is heard in the right posterior upper lobe, right posterior middle lobe and right posterior lower lobe. Vital Signs: 00:56 BP 144 / 97; Pulse 84; Resp 16 S; Temp 98.2; Pulse Ox 99% on R/A; Weight 102.06 kg (R); bb Height 6 ft. 0 in. (182.88 cm) (R); Pain 5/10; 01:04 BP 124 / 91; Pulse 86; Resp 20 S; Temp 98.9(O); Pulse Ox 98% on R/A; cc4 02:30 BP 125 / 88; Pulse 85; Resp 18; Pulse Ox 99% on R/A; df1 04:12 BP 132 / 78; Pulse 84; Resp 18; Pulse Ox 100% on R/A; df1 00:56 Body Mass Index 30.52 (102.06 kg, 182.88 cm) bb MDM: 01:04 Patient medically screened. kb 01:11 Data reviewed: vital signs, nurses notes. Data interpreted: Pulse oximetry: on room air kb is 99 %. Interpretation: normal. 01:55 Transition of care: After a detail discussion of the patient's case, care is kb transferred to Justo Kelly MD. 07/14 01:05 Order name: Basic Metabolic Panel; Complete Time: 02:46 kb 07/14 01:05 Order name: CBC with Diff; Complete Time: 02:24 kb 07/14 01:05 Order name: Magnesium; Complete Time: 02:46 kb 07/14 01:05 Order name: NT PRO-BNP; Complete Time: 02:46 kb 07/14 01:05 Order name: PT-INR; Complete Time: 02:24 kb 07/14 01:05 Order name: Troponin (emerg Dept Use Only); Complete Time: 02:46 kb 07/14 01:05 Order name: EKG; Complete Time: 01:05 kb 07/14 01:05 Order name: Cardiac monitoring; Complete Time: 01:58 kb 07/14 01:05 Order name: EKG - Nurse/Tech; Complete Time: 01:58 kb 07/14 01:05 Order name: CT Chest For PE Angio; Complete Time: 03:49 kb 07/14 01:05 Order name: IV Saline Lock; Complete Time: 01:58 kb 07/14 01:05 Order name: Labs collected and sent; Complete Time: :58 kb 07/14 01:05 Order name: O2 Per Protocol; Complete Time: 02:46 kb 07/14 01:05 Order name: O2 Sat Monitoring; Complete Time: 01:58 kb Administered Medications: 01:50 Drug: Albuterol 2.5 mg Route: Inhalation; cc4 01:50 Drug: AtroVENT (ipratropium) Aerosol 0.5 mg Route: Inhalation; cc4 03:11 Drug: NS 0.9% 1000 ml Route: IV; Rate: 1000 ml; Site: right antecubital; df1 04:13 Follow up: IV Status: Completed infusion; IV Intake: 1000ml df1 04:11 Drug: LevaQUIN (levofloxacin) 500 mg Route: PO; df1 Disposition: 06:12 Co-signature as Attending Physician, Justo Kelly MD. [facility] Disposition Summary: 07/14/21 04:00 Discharge Ordered Location: Home [facility] Problem: new [facility] Symptoms: have improved [facility] Condition: Stable [facility] Diagnosis - Pleurisy - Alveolitis [facility] Followup: [facility] - With: Private Physician - When: 1 - 2 days - Reason: Worsening of condition, Recheck today's complaints, Continuance of care, Re-evaluation by your physician Discharge Instructions: - Discharge Summary Sheet 7 - Pneumonitis 7 - Pleurisy, [id number] [facility] Forms: - Medication Reconciliation Form [facility] - Thank You Letter [facility] - Antibiotic Education [facility] - Prescription Opioid Use [facility] Prescriptions: - levofloxacin 500 mg Oral Tablet - take 1 tablet by ORAL route once daily for 7 days; 7 tablet; Refills: 0, mh7 Product Selection Permitted Signatures: Dispatcher [employer] EDKendal Delvalle, IT MANAGER-C IT MANAGER-Becca Williamson, RN RN Justo Patrick MD MD 7 Marline Phoenix RN RN cc4 Annetta Larkin df1
[2021-07-14] MEDS ORDERED: levoFLOXacin 500 MG TAB ONE (04:02)
[2021-07-14 04:26] VITALS: TEMP 98.9
[2021-07-14 04:28] VITALS: BP 132/78; O2SAT 100
== END 2021-07-14 04:13 | disposition home or self-care (01) ==
LOC: ER 00:27
DX: R09.1 Pleurisy (principal); I10 Essential (primary) hypertension; K21.9 Gastro-esophageal reflux disease without esophagitis; Z88.8 Allergy status to other drugs, medicaments and biological substances
CPT/HCPCS: 93005; 85025; 80048; 36415; 83735; 85610; 84484; 83880; 71275; 96360; 99285; Q9967; J7030